=== PATIENT | male | born 1945 | race Caucasian/White ===

== ENCOUNTER 2017-10-23 10:43 | Observation (INO) ==
--- NOTE | 2017-10-23 11:08 | Emergency Department Note ---
Disposition Clinical Impression: Cholecystitis, UTI (urinary tract infection), Hyponatremia Disposition: Admitted As Inpatient Condition: Fair Time of Disposition: 13:59 Abdominal Pain HPI - General Chief Complaint: ED Abdominal Pain Stated Complaint: abd pain Time Seen by Provider: 10/23/17 10:48 Source: patient Limitations: no limitations Nursing Notes Reviewed: Yes Vital Signs Reviewed: Yes - History of Present Illness HPI Narrative: 72 year old white male presents for abdominal pain. Patient presented to ED two days ago for cramping epigastric pain, discharged with diagnosis of "biliary colic". Told to get HIDA scan and followup with general surgeon Dr. Johnson. Comes back to ED today for RUQ pain, constant sharp 7/10. Worse with laying down, better with bending or sitting. Also reports RLQ pain when it's pressed on. Epigastric cramping is improved. States constipation for 3 days, usually has daily bowel movements. Reports he "can't urinate". When he feels like he has " to go," urine "trickles out" before he can make it to the bathroom. After, bladder feels empty. Denies nausea, vomiting, fever, chills, chest pain, shortness of breath, swelling, pain in shoulder. Pain Scale: 7 - Related Data Home Medications Medication Instructions Recorded Confirmed Aspirin [Lo-Dose Aspirin EC] 81 mg PO DAILY 10/23/17 10/23/17 Atorvastatin [Lipitor] 20 mg PO DAILY 10/23/17 10/23/17 Cholecalciferol (D-3) [Vitamin D] 1,000 unit PO DAILY 10/23/17 10/23/17 Lisinopril/Hydrochlorothiazide 0.5 tab PO HS 10/23/17 10/23/17 [Zestoretic 20-12.5 mg Tablet] Lisinopril/Hydrochlorothiazide 1 tab PO QAM 10/23/17 10/23/17 [Zestoretic 20-12.5 mg Tablet] Ranitidine HCl [Zantac] 300 mg PO DAILY PRN 10/23/17 10/23/17 Allergies Allergy/AdvReac Type Severity Reaction Status Date / Time Penicillins [PCN] Allergy Hives Verified 10/23/17 13:56 All systems ED: reviewed and negative except as stated. Abdominal Pain PMH - Past Medical History Medical history: Reports: GERD, hypertension Male Surgical History: Reports: no surgical history Psychiatric history: Reports: no psych history - Social History Smoking status: Never smoker Alcohol use: Reports: occasionally Drug use: Reports: none Physical Exam - General Limitations: no limitations General appearance: alert, in no apparent distress - Head Head exam: atraumatic, normocephalic, normal inspection - Eye Eye exam: Present: normal appearance, PERRL, EOMI - Neck Neck exam: Present: normal inspection, full ROM, trachea midline - Chest Chest inspection: Present: normal inspection, symmetric chest wall rise - Respiratory Respiratory exam: Present: normal lung sounds bilaterally - Cardiovascular Cardiovascular exam: Present: regular rate, normal rhythm, normal heart sounds - Abdominal Exam Abdominal exam: Present: tenderness, normal bowel sounds. Absent: soft (firm on right side. ), Non-Tender, distention, guarding, rebound, rigidity, bruit Abdominal tenderness: Present: RUQ, RLQ - Extremities Exam Extremities exam: Present: normal inspection, full ROM. Absent: tenderness, pedal edema - Neurological Exam Neurological exam: Present: alert, oriented X3, CN II-XII intact - Psychiatric Psychiatric exam: Present: normal affect, normal mood - Skin Skin exam: Present: warm, dry, intact, normal color Course Course Narrative: 72 year old male presents for RUQ abdominal pain. Was seen in ED 2 days ago for biliary colic. Reports associated symptoms of constipation and urinary retention. Denies nausea, vomiting, fever, chills. Patient is alert and oriented , hemodynamically stable, and of non-toxic appearance. On exam, tender to palpation RUQ and RLQ, without distention or rebound. CT abd/pelvis and US gallbaldder from 2 days ago reveals thickening of gallbladder wall that could represent early acute cholecystitis. CT also reveals BPH, prostate 5.3cm. Will order US gallbladder and bilirubin. Will do point of care bladder US. - Reevaluation(s) Reevaluation #1: Point of care bladder ultrasound shows no urinary retention. WBC is elevated to 16.8 from 12.4 from prior visit 2 days ago. Lactic acid negative. UA reveals positive nitrite, moderate leukocyte esterase, and many bacteria. Also high protein, large blood, and high urobilinogen. On prostate exam, prostate is firm , not boggy and without nodules, not tender to palpation. Patient has penicillin allergy - hives. Start patient on flagyl and cipro. Sodium and chloride are decreased from 2 days ago. Bilirubin is further elevated. US gallbladder shows gallbladder wall thickening and gallbladder stones/sludge, concerning for cholecystitis. Spoke with general surgeon who does not recommend another CT abd/pelvis. Recommends admission to Medicine and agrees to serve as consult. Spoke with crayon painter Dr. Gilmore about hyponatremia and hypochloremia. States probably due to hypovolemia, recommends urine osmolarity, urine sodium, and IVF NS, and recheck blood Na 6 hours after initial draw. Dr. Gilmore agrees to serve as consult. Spoke with hospitalist Dr. Wynne who agrees to admit. Discussed results with patient and family who voices understanding and agrees to admission. Time: 13:58 Vital Signs Temperature 98.8 F 10/23/17 10:46 Pulse Rate 88 10/23/17 10:46 Respiratory Rate 18 10/23/17 10:46 Blood Pressure 165/81 10/23/17 10:46 O2 Sat by Pulse Oximetry 98 10/23/17 10:46 Temperature 98.8 F 10/23/17 10:52 Pulse Rate 86 10/23/17 14:06 Respiratory Rate 16 10/23/17 14:06 Blood Pressure 136/74 10/23/17 14:06 O2 Sat by Pulse Oximetry 96 10/23/17 14:06 Oxygen Delivery Oxygen Delivery Room Air Abdominal Pain - MDM Narrative Medical decision making narrative: Gallbladder Ultrasound 10/23/17 11:02 IMPRESSION: Gallbladder distension with wall thickening, concerning for cholecystitis. Gallbladder stones/sludge visible. D/ / Darryn Morelos MD / Darryn Morelos MD Interpreting Provider: Darryn Morelos MD - Medical Records Medical records reviewed: Yes I reviewed the patient's medical records. - Lab Data Lab results reviewed: Yes I reviewed the patient's lab results. Result diagrams: 10/23/17 11:17 10/23/17 11:16 Lab Results 10/23/17 10/23/17 10/23/17 Range/Units 11:16 11:17 11:17 WBC 16.8 H (4.3-11.1) K/mcL RBC 4.97 (4.19-5.50) M/mcL Hgb 15.1 (12.9-16.9) g/dL Hct 43.0 (37.5-50.1) % MCV 86.5 (83.0-100.0) fL MCH 30.4 (28.0-33.3) pg MCHC 35.1 (31.6-35.5) g/dL RDW 13.4 (11.5-14.5) % Plt Count 242 (140-400) K/mcL MPV 9.1 L (9.4-12.4) fL Immature Gran % 0.6 (0-4) % Seg Neutrophils % 80.1 % Lymphocytes % 8.7 % Monocytes % 10.2 % Eosinophils % 0.2 % Basophils % 0.2 % Neutrophils # 13.5 H (1.6-8.9) K/mcL Lymphocytes # 1.5 (0.6-4.6) K/mcL Monocytes # 1.7 H (0.0-1.3) K/mcL Eosinophils # 0.0 (0.0-0.6) K/mcL Basophils # 0.0 (0.0-0.2) K/mcL PT 13.8 H (9.4-12.1) Seconds INR 1.2 Sodium 121 L (136-145) mEq/L Potassium 4.3 (3.5-5.1) mEq/L Chloride 88 L (98-107) mEq/L Carbon Dioxide 24 (23-29) mEq/L BUN 12 (8-23) mg/dL Creatinine 0.86 (0.70-1.30) mg/dL Est GFR ( Amer) > 60 (> 60) Est GFR (Non-Af Amer) > 60 (> 60) BUN/Creatinine Ratio 14 (6-26) Glucose 127 H (70-105) mg/dL Calculated Osmolality 253 L (280-300) Lactic Acid (0.5-2.2) mmol/L Calcium 9.0 (8.6-10.3) mg/dL Total Bilirubin 3.3 H (0.3-1.0) mg/dL Direct Bilirubin 0.7 H (0.0-0.2) mg/dL Indirect Bilirubin 2.6 H (0.0-1.2) mg/dL AST 17 (13-39) Units/L ALT 17 (7-52) Units/L Alkaline Phosphatase 54 (34-104) Units/L Serum Total Protein 6.7 (6.4-8.9) g/dL Albumin 3.8 (3.5-5.7) g/dL Globulin 2.9 (2.4-3.5) g/dL Albumin/Globulin Ratio 1.3 (1.1-2.2) Lipase < 3 L (11-82) Units/L Urine Color (Yellow) Urine Clarity (Clear) Urine pH (5.0-8.0) pH Units Ur Specific [place] (1.010-1.025) Urine Protein (Neg-Trace) mg/dL Urine Glucose (UA) (Normal) mg/dL Urine Ketones (Negative) mg/dL Urine Blood (Negative) Urine Nitrite (Negative) Urine Bilirubin (Negative) Urine Urobilinogen (Normal) mg/dL Ur Leukocyte Esterase (Negative) Urine Microscopic RBC (0-3) per hpf Urine Microscopic WBC (0-3) per hpf Ur Squamous Epith Cells (None-Few) per lpf Urine Bacteria (None-Few) per hpf Hyaline Casts (None-Few) per lpf Ur Culture Indicated? (NO) Acetaminophen < 10 L (10-20) mcg/mL 10/23/17 10/23/17 Range/Units 11:30 11:51 WBC (4.3-11.1) K/mcL RBC (4.19-5.50) M/mcL Hgb (12.9-16.9) g/dL Hct (37.5-50.1) % MCV (83.0-100.0) fL MCH (28.0-33.3) pg MCHC (31.6-35.5) g/dL RDW (11.5-14.5) % Plt Count (140-400) K/mcL MPV (9.4-12.4) fL Immature Gran % (0-4) % Seg Neutrophils % % Lymphocytes % % Monocytes % % Eosinophils % % Basophils % % Neutrophils # (1.6-8.9) K/mcL Lymphocytes # (0.6-4.6) K/mcL Monocytes # (0.0-1.3) K/mcL Eosinophils # (0.0-0.6) K/mcL Basophils # (0.0-0.2) K/mcL PT (9.4-12.1) Seconds INR Sodium (136-145) mEq/L Potassium (3.5-5.1) mEq/L Chloride (98-107) mEq/L Carbon Dioxide (23-29) mEq/L BUN (8-23) mg/dL Creatinine (0.70-1.30) mg/dL Est GFR ( Amer) (> 60) Est GFR (Non-Af Amer) (> 60) BUN/Creatinine Ratio (6-26) Glucose (70-105) mg/dL Calculated Osmolality (280-300) Lactic Acid 1.6 (0.5-2.2) mmol/L Calcium (8.6-10.3) mg/dL Total Bilirubin (0.3-1.0) mg/dL Direct Bilirubin (0.0-0.2) mg/dL Indirect Bilirubin (0.0-1.2) mg/dL AST (13-39) Units/L ALT (7-52) Units/L Alkaline Phosphatase (34-104) Units/L Serum Total Protein (6.4-8.9) g/dL Albumin (3.5-5.7) g/dL Globulin (2.4-3.5) g/dL Albumin/Globulin Ratio (1.1-2.2) Lipase (11-82) Units/L Urine Color [place] A (Yellow) Urine Clarity Cloudy A (Clear) Urine pH 6.0 (5.0-8.0) pH Units Ur Specific [place] 1.025 (1.010-1.025) Urine Protein 100 H (Neg-Trace) mg/dL Urine Glucose (UA) Normal (Normal) mg/dL Urine Ketones Trace H (Negative) mg/dL Urine Blood Large H (Negative) Urine Nitrite Positive A (Negative) Urine Bilirubin Small H (Negative) Urine Urobilinogen 4.0 H (Normal) mg/dL Ur Leukocyte Esterase Moderate H (Negative) Urine Microscopic RBC 5-15 H (0-3) per hpf Urine Microscopic WBC TNTC H (0-3) per hpf Ur Squamous Epith Cells Few (None-Few) per lpf Urine Bacteria Many H (None-Few) per hpf Hyaline Casts None Seen (None-Few) per lpf Ur Culture Indicated? YES A (NO) Acetaminophen (10-20) mcg/mL - Radiology Data Radiology results reviewed: Yes I reviewed the patient's radiology results. CT abd/pelvis 10/21/2017. 1. Hydropic appearance of the gallbladder with 6 mm calcification in the region of the gallbladder neck/cystic duct. Findings can be seen in setting of calculus cholecystitis. Ultrasound is recommended for further evaluation, to confirm. 2. Enlargement of the prostate. Correlation with physical exam findings and PSA for BPH is recommended. US gallbladder 10/21/2017. 1. Distended gallbladder with gallbladder wall thickening. In light of the findings of the previous CT, findings could represent early acute cholecystitis. Consider further evaluation with nuclear medicine HIDA scan. Attestation Statement - Attestation Attestation: I, Randall De La Rosa DO, examined this patient [id number] and my medical decision-making was reviewed with Dr. Meme Leiva, Resident Physician. I agree with the documented findings, disposition and treatment plan as described except to the extent set forth below. Please see my progress notes for details.
[2017-10-23 11:28] LABS: Basophils % 0.2 %; Eosinophils % 0.2 %; Hemoglobin 15.1 g/dL (12.9-16.9); Immature Granulocytes % 0.6 % (0-4); Lymphocytes # 1.5 K/mcL (0.6-4.6); Lymphocytes % 8.7 %; Mean Corpuscular HGB Conc 35.1 g/dL (31.6-35.5); Mean Corpuscular Hemoglobin 30.4 pg (28.0-33.3); Mean Corpuscular Volume 86.5 fL (83.0-100.0); Mean Platelet Volume 9.1 fL (9.4-12.4); Monocytes # 1.7 K/mcL (0.0-1.3); Monocytes % 10.2 %; Neutrophils # 13.5 K/mcL (1.6-8.9); Platelet Count 242 K/mcL (140-400); Red Blood Count 4.97 M/mcL (4.19-5.50); Red Cell Distribution Width 13.4 % (11.5-14.5); Segmented Neutrophils % 80.1 %
[2017-10-23 11:37] LABS: INR 1.2; Prothrombin Time 13.8 Seconds (9.4-12.1)
--- NOTE | 2017-10-23 11:59 | Emergency Department Note ---
Disposition Clinical Impression: Cholecystitis, UTI (urinary tract infection), Hyponatremia Disposition: Admitted As Inpatient Condition: Fair Time of Disposition: 14:10 General Adult HPI - General Chief complaint: ED Abdominal Pain Stated complaint: abd pain Time Seen by Provider: 10/23/17 10:48 Source: patient Limitations: no limitations - History of Present Illness Pain Scale: 7 - Related Data Home Medications Medication Instructions Recorded Confirmed Aspirin [Lo-Dose Aspirin EC] 81 mg PO DAILY 10/23/17 10/23/17 Atorvastatin [Lipitor] 20 mg PO DAILY 10/23/17 10/23/17 Cholecalciferol (D-3) [Vitamin D] 1,000 unit PO DAILY 10/23/17 10/23/17 Lisinopril/Hydrochlorothiazide 0.5 tab PO HS 10/23/17 10/23/17 [Zestoretic 20-12.5 mg Tablet] Lisinopril/Hydrochlorothiazide 1 tab PO QAM 10/23/17 10/23/17 [Zestoretic 20-12.5 mg Tablet] Ranitidine HCl [Zantac] 300 mg PO DAILY PRN 10/23/17 10/23/17 Allergies Allergy/AdvReac Type Severity Reaction Status Date / Time Penicillins [PCN] Allergy Hives Verified 10/23/17 13:56 Past Medical History - Past Medical History Medical history: Reports: GERD, hypertension Surgical history: Reports: no surgical history Psychiatric history: Reports: no psych history - Social History Smoking Status: Never smoker Smokeless Tobacco Status: No Alcohol use: Reports: occasionally Drug use: Reports: none Physical Exam - General Limitations: no limitations General appearance: alert, in no apparent distress Course Vital Signs Temperature 98.8 F 10/23/17 10:46 Pulse Rate 88 10/23/17 10:46 Respiratory Rate 18 10/23/17 10:46 Blood Pressure 165/81 10/23/17 10:46 O2 Sat by Pulse Oximetry 98 10/23/17 10:46 Temperature 98.8 F 10/23/17 10:52 Pulse Rate 86 10/23/17 14:06 Respiratory Rate 16 10/23/17 14:06 Blood Pressure 136/74 10/23/17 14:06 O2 Sat by Pulse Oximetry 96 10/23/17 14:06 Oxygen Delivery Oxygen Delivery Room Air Medical Decision Making - Lab Data Result diagrams: 10/23/17 11:17 10/23/17 11:16 Lab Results 10/23/17 10/23/17 10/23/17 Range/Units 11:16 11:17 11:17 WBC 16.8 H (4.3-11.1) K/mcL RBC 4.97 (4.19-5.50) M/mcL Hgb 15.1 (12.9-16.9) g/dL Hct 43.0 (37.5-50.1) % MCV 86.5 (83.0-100.0) fL MCH 30.4 (28.0-33.3) pg MCHC 35.1 (31.6-35.5) g/dL RDW 13.4 (11.5-14.5) % Plt Count 242 (140-400) K/mcL MPV 9.1 L (9.4-12.4) fL Immature Gran % 0.6 (0-4) % Seg Neutrophils % 80.1 % Lymphocytes % 8.7 % Monocytes % 10.2 % Eosinophils % 0.2 % Basophils % 0.2 % Neutrophils # 13.5 H (1.6-8.9) K/mcL Lymphocytes # 1.5 (0.6-4.6) K/mcL Monocytes # 1.7 H (0.0-1.3) K/mcL Eosinophils # 0.0 (0.0-0.6) K/mcL Basophils # 0.0 (0.0-0.2) K/mcL PT 13.8 H (9.4-12.1) Seconds INR 1.2 Sodium 121 L (136-145) mEq/L Potassium 4.3 (3.5-5.1) mEq/L Chloride 88 L (98-107) mEq/L Carbon Dioxide 24 (23-29) mEq/L BUN 12 (8-23) mg/dL Creatinine 0.86 (0.70-1.30) mg/dL Est GFR ( Amer) > 60 (> 60) Est GFR (Non-Af Amer) > 60 (> 60) BUN/Creatinine Ratio 14 (6-26) Glucose 127 H (70-105) mg/dL Calculated Osmolality 253 L (280-300) Lactic Acid (0.5-2.2) mmol/L Calcium 9.0 (8.6-10.3) mg/dL Total Bilirubin 3.3 H (0.3-1.0) mg/dL Direct Bilirubin 0.7 H (0.0-0.2) mg/dL Indirect Bilirubin 2.6 H (0.0-1.2) mg/dL AST 17 (13-39) Units/L ALT 17 (7-52) Units/L Alkaline Phosphatase 54 (34-104) Units/L Serum Total Protein 6.7 (6.4-8.9) g/dL Albumin 3.8 (3.5-5.7) g/dL Globulin 2.9 (2.4-3.5) g/dL Albumin/Globulin Ratio 1.3 (1.1-2.2) Lipase < 3 L (11-82) Units/L Urine Color (Yellow) Urine Clarity (Clear) Urine pH (5.0-8.0) pH Units Ur Specific [place] (1.010-1.025) Urine Protein (Neg-Trace) mg/dL Urine Glucose (UA) (Normal) mg/dL Urine Ketones (Negative) mg/dL Urine Blood (Negative) Urine Nitrite (Negative) Urine Bilirubin (Negative) Urine Urobilinogen (Normal) mg/dL Ur Leukocyte Esterase (Negative) Urine Microscopic RBC (0-3) per hpf Urine Microscopic WBC (0-3) per hpf Ur Squamous Epith Cells (None-Few) per lpf Urine Bacteria (None-Few) per hpf Hyaline Casts (None-Few) per lpf Ur Culture Indicated? (NO) Acetaminophen < 10 L (10-20) mcg/mL 10/23/17 10/23/17 Range/Units 11:30 11:51 WBC (4.3-11.1) K/mcL RBC (4.19-5.50) M/mcL Hgb (12.9-16.9) g/dL Hct (37.5-50.1) % MCV (83.0-100.0) fL MCH (28.0-33.3) pg MCHC (31.6-35.5) g/dL RDW (11.5-14.5) % Plt Count (140-400) K/mcL MPV (9.4-12.4) fL Immature Gran % (0-4) % Seg Neutrophils % % Lymphocytes % % Monocytes % % Eosinophils % % Basophils % % Neutrophils # (1.6-8.9) K/mcL Lymphocytes # (0.6-4.6) K/mcL Monocytes # (0.0-1.3) K/mcL Eosinophils # (0.0-0.6) K/mcL Basophils # (0.0-0.2) K/mcL PT (9.4-12.1) Seconds INR Sodium (136-145) mEq/L Potassium (3.5-5.1) mEq/L Chloride (98-107) mEq/L Carbon Dioxide (23-29) mEq/L BUN (8-23) mg/dL Creatinine (0.70-1.30) mg/dL Est GFR ( Amer) (> 60) Est GFR (Non-Af Amer) (> 60) BUN/Creatinine Ratio (6-26) Glucose (70-105) mg/dL Calculated Osmolality (280-300) Lactic Acid 1.6 (0.5-2.2) mmol/L Calcium (8.6-10.3) mg/dL Total Bilirubin (0.3-1.0) mg/dL Direct Bilirubin (0.0-0.2) mg/dL Indirect Bilirubin (0.0-1.2) mg/dL AST (13-39) Units/L ALT (7-52) Units/L Alkaline Phosphatase (34-104) Units/L Serum Total Protein (6.4-8.9) g/dL Albumin (3.5-5.7) g/dL Globulin (2.4-3.5) g/dL Albumin/Globulin Ratio (1.1-2.2) Lipase (11-82) Units/L Urine Color [place] A (Yellow) Urine Clarity Cloudy A (Clear) Urine pH 6.0 (5.0-8.0) pH Units Ur Specific [place] 1.025 (1.010-1.025) Urine Protein 100 H (Neg-Trace) mg/dL Urine Glucose (UA) Normal (Normal) mg/dL Urine Ketones Trace H (Negative) mg/dL Urine Blood Large H (Negative) Urine Nitrite Positive A (Negative) Urine Bilirubin Small H (Negative) Urine Urobilinogen 4.0 H (Normal) mg/dL Ur Leukocyte Esterase Moderate H (Negative) Urine Microscopic RBC 5-15 H (0-3) per hpf Urine Microscopic WBC TNTC H (0-3) per hpf Ur Squamous Epith Cells Few (None-Few) per lpf Urine Bacteria Many H (None-Few) per hpf Hyaline Casts None Seen (None-Few) per lpf Ur Culture Indicated? YES A (NO) Acetaminophen (10-20) mcg/mL Attestation Statement - Attestation Attestation: I, Randall De La Rosa DO, examined this patient [id number] and my medical decision-making was reviewed with Dr. Meme Leiva, Resident Physician. I agree with the documented findings, disposition and treatment plan as described except to the extent set forth below. Please see my progress notes for details. 72-year-old male presents emergency room for evaluation of abdominal pain and decreased urinary output. Patient denies any fevers or chills no trauma or injuries at this time. Currently denying chest pain shortness breath headache vision changes nausea vomiting or diarrhea. Patient's main complaint is he had not had a bowel movement and has had decreased urinary output according to him. He was seen 2 days ago by myself and had a detailed evaluation completed a CT the abdomen ultrasound of the right upper quadrant that was concerning for possible cholecystitis or gallbladder wall thickening is labs reviewed as well as imaging with the on-call surgeon. Discussed and reviewed the presentation that time. There is no other acute infectious etiology noted during the workup. Patient did have a significantly large prostate but had no pain in his lower abdomen. Patient is presenting here today with pain in the right upper quadrant of the abdomen that radiates down in the right lower quadrant of the abdomen. Patient is more tender suprapubically into the right lower quadrant of the abdomen in comparison to the epigastrium and right upper quadrant. Patient will have repeat ultrasound of the gallbladder along with screening labs and urinalysis. Pain medication fluids will be given as needed. Bedside ultrasonography of the bladder will be completed as well looking for fluid retention. Patient otherwise clinically stable with stable vital signs and is afebrile. He is denying any other complaints this time. Repeat evaluation and clinical symptoms medical control be completed. See detailed recommendation physical exam, medical intervention, medical decision-making and disposition the resident physician's note. No critical care provider the patient's treatment course at this time. 1200 Patient has what appears to be urinary tract infection. This is a new finding compared to the previous evaluation. Patient does have lower abdominal pain. Prostate examination will be completed. Gallbladder ultrasound repeat similar findings from last time but no confirmatory findings of acute cholecystitis. Surgical consultation will be placed after the prostate exam is completed 1300 Patient was discussed and reviewed with the hospitalist Dr. encarnacion. No other operations or concerns at this time. Nephrology was consult and recommended fluids. Patient otherwise clinically stable we will continue to monitor here until admission process is completed.
[2017-10-23 12:06] LABS: Bilirubin,Urine Small (Negative); Blood,Urine Large (Negative); Clarity,Urine Cloudy (Clear); Color,Urine Orange (Yellow); Glucose,Urine (UA) Normal (Normal); Ketones,Urine Trace mg/dL (Negative); Leukocyte Esterase,Urine Moderate (Negative); Nitrite,Urine Positive (Negative); Protein,Urine 100 mg/dL (Neg-Trace); Specific Gravity,Urine 1.025 (1.010-1.025)
[2017-10-23 12:09] LABS: Bacteria,Urine Many per hpf (None-Few); Hyaline Casts,Urine None Seen per lpf (None-Few); Squamous Epithelial Cell,Urine Few per lpf (None-Few); WBC,Urine TNTC per hpf (0-3)
[2017-10-23 12:46] LABS: Alanine Aminotransferase 17 Units/L (7-52); Albumin 3.8 g/dL (3.5-5.7); Albumin/Globulin Ratio 1.3 (1.1-2.2); Alkaline Phosphatase 54 Units/L (34-104); Aspartate Amino Transferase 17 Units/L (13-39); BUN/Creatinine Ratio 14 (6-26); Bilirubin,Total 3.3 mg/dL (0.3-1.0); Blood Urea Nitrogen 12 mg/dL (8-23); Carbon Dioxide 24 mEq/L (23-29); Chloride 88 mEq/L (98-107); Globulin 2.9 g/dL (2.4-3.5); Glucose 127 mg/dL (70-105); Lipase < 3 Units/L (11-82); Osmolality,Calculated 253 (280-300); Potassium 4.3 mEq/L (3.5-5.1); Sodium 121 mEq/L (136-145); Total Protein 6.7 g/dL (6.4-8.9); eGFR For Non-African Americans > 60 (> 60)
[2017-10-23 13:02] LABS: Bilirubin,Direct 0.7 mg/dL (0.0-0.2); Bilirubin,Indirect 2.6 mg/dL (0.0-1.2)
[2017-10-23] MEDS ORDERED: MetroNIDAZOLE 500 MG/100 ML 500 MG/100 ML BAG IVPB ONE (13:10)
[2017-10-23] MEDS ORDERED: Ondansetron 4 MG/2 ML VIAL IVP ONE (13:26)
[2017-10-23] MEDS ORDERED: Ketorolac 15 MG/ML VIAL IVP ONE (13:26)
[2017-10-23 13:36] LABS: Acetaminophen < 10 mcg/mL (10-20)
[2017-10-23] MEDS ORDERED: 0.9 % Sodium Chloride 1,000 ML IVC ONE (14:18)
[2017-10-23] MEDS ORDERED: Acetaminophen 325 MG TABLET PO PRN (14:39)
[2017-10-23] MEDS ORDERED: Naloxone 0.4 MG/ML INJ IVP PRN (14:39)
[2017-10-23] MEDS ORDERED: 0.9 % Sodium Chloride 1,000 ML IVC SCH ×2 (14:45→22:01)
[2017-10-23] MEDS ORDERED: *HR* Promethazine 25 MG/ML VIAL IVP PRN (14:49)
--- NOTE | 2017-10-23 15:01 | Internal Med History&Physical ---
<BassamsilasbobbyJorge - Last Filed: 10/23/17 16:03> Date of Encounter: 10/23/17 Time of Encounter: 14:00 Internal Medicine - H&P: HPI Chief complaint: Abdominal pain Admitted From: Emergency Dept Plans for Post Hospital Care: Home History of present illness: Mr. Trimble is a 72 year old male w/PMH of GERD, HTN, and HLD presents from the ED w/CC of abdominal pain. Pt. reports being seen at [facility] ED on 10/21 w/same sx. Discharged. Pt. reports he began feeling worse w/worsening abdominal pain and reduced urinary output. Pt. reports urinary urgency w/scant output and burning. Pt. also reports no BM since 10/20. Pt. states he [place] to all this happening on the . Associated sx: fever, chills , pain w/laying flat. No alleviating or aggravating factors. Pt. denies recent illness, nausea, vomiting, headache, changes in vision, unusual bleeding, chest pain, SOB, cough, chest congestion, diarrhea, dizziness, lightheadedness, numbness, tingling, pre-syncope, syncope. Past Med Surg Social Fam HX - Past Medical History Source: patient, old records reviewed, obtained from family Medical history: GERD, hyperlipidemia, hypertension Psychiatric history: no psych history - Past Surgical History Surgical History: no surgical history - Social History Smoking Status: Never smoker Smokeless Tobacco Status: No Alcohol use: occasionally Drug use: none Current living situation: Home, With Family Activity Level: Independent ambulation, Very active Recent Out of Country Travel Within the Last 8 Weeks: No Exposure or Possible Exposure to Illness During Travel: No - Family History Father Race: Family Member Ethnicity: Non- Living Status: Age at : 75 Cause of : Infective TB Hx Family Respiratory Disorders: Yes (TB, COPD) Mother Race: Family Member Ethnicity: Non- Living Status: Age at : 79 Cause of : Alzheimer's disease Hx Family Cardiac Disorders: Yes (CVA) Hx Family Endocrine Disorder: Yes (DM) Hx Family Neurologic Disorders: Yes (Alzheimer's disease) Brother Race: Family Member Ethnicity: Non- Living Status: Age at : 51 Cause of : Aneurysm Hx Family Cardiac Disorders: Yes (Aneurysm) Sister Race: Family Member Ethnicity: Non- Living Status: Age at : 82 Cause of : Accident Hx Family Neurologic Disorders: Yes (Alzheimer's disease) Internal Medicine - H&P: Meds Aspirin [Lo-Dose Aspirin EC] 81 mg PO DAILY 10/23/17 [History] Atorvastatin [Lipitor] 20 mg PO DAILY 10/23/17 [History] Cholecalciferol (D-3) [Vitamin D] 1,000 unit PO DAILY 10/23/17 [History] Lisinopril/Hydrochlorothiazide [Zestoretic 20-12.5 mg Tablet] 0.5 tab PO HS [History] Lisinopril/Hydrochlorothiazide [Zestoretic 20-12.5 mg Tablet] 1 tab PO QAM 10/23 [History] Ranitidine HCl [Zantac] 300 mg PO DAILY PRN 10/23/17 [History] 3 Allergy/AdvReac Type Severity Reaction Status Date / Time Penicillins [PCN] Allergy Hives Verified 10/23/17 13:56 All Systems PM: A 10-system review of systems was performed and is negative for pertinent findings except as documented above in the HPI. - Constitutional Constitutional: no chills, no fever(s), no night sweats - EENT Eyes: no change in vision, no discharge, no pain, no photophobia Ears: no ear discharge, no ear pain, no tinnitus Nose, mouth and throat: no dysphagia, no nasal discharge, no neck pain, no sore throat - Breasts Breasts: as per HPI - Cardiovascular Cardiovascular ROS IM: no chest pain, no diaphoresis, no dyspnea, no lightheadedness, no palpitations, no syncope - Respiratory Respiratory: no cough, no dyspnea, no wheezing, no excessive phlegm production - Gastrointestinal Gastrointestinal: as per HPI, abdominal pain, constipation, no diarrhea, no hematemesis, no hematochezia, no melena, no nausea, no vomiting - Genitourinary Genitourinary ROS male: as per HPI, difficulty urinating, urinary urgency - Musculoskeletal Musculoskeletal ROS IM: as per HPI, no numbness, no tingling - Integumentary Integumentary IM: no rash, no unusual bruising - Neurological Neurological ROS: no confusion, no convulsions, no focal weakness, no numbness, no tingling, no tremor(s) - Psychiatric Psychiatric: as per HPI - Endocrine Endocrine IM: as per HPI - Hematologic/Lymphatic Hematologic/Lymphatic: no easy bruising - Allergic/Immunologic Allergic/Immunologic: as per HPI - Constitutional Vitals: Temp Pulse Resp BP Pulse Ox 98.8 F 86 16 136/74 96 10/23/17 10:52 10/23/17 14:06 10/23/17 14:06 10/23/17 14:06 10/23/17 14:06 General appearance: Present: cooperative, mild distress (Abdominal pain), A&O X 3, pleasant, underweight, answers questions appropriately - Head Head exam: Present: atraumatic, normocephalic - Eye Eye exam: Present: PERRL, conjuntiva pink, sclera anicteric Pupils: Present: PERRL - ENT ENT exam: Present: normal exam - Neck Neck exam general surgery: Present: supple, trachea midline. Absent: lymphadenopathy - Respiratory Respiratory exam: Present: CTAB. Absent: accessory muscle use, rales, rhonchi, wheezes - Cardiovascular Cardiovascular exam: Present: RRR, +S1, +S2. Absent: diastolic murmur, gallop, rubs, systolic murmur - GI/Abdominal GI/Abdominal exam: Present: normal bowel sounds, soft, no peritoneal signs. Absent: distended, tenderness - Rectal Rectal exam: Present: deferred - Additional comments: exam deferred. - Extremities Exam Extremities exam: Present: warm, radial pulses palpable and symmetrical. Absent : calf tenderness, cyanotic, pedal edema - Back Exam Back exam: Present: normal inspection - Neurological Exam Neurological exam: Present: alert, CN II-XII intact, oriented X3, no focal deficits. Absent: pronater drift, facial droop, speech deficit - Psychiatric Psychiatric exam: Present: normal affect, normal mood - Skin Skin exam: Present: dry, intact Internal Med - H&P Results - Labs CBC & Chem 7: 10/23/17 11:17 10/23/17 11:16 - Diagnostic Studies Other Images Additional comments: Impressions Gallbladder Ultrasound 10/23/17 11:02 IMPRESSION: Gallbladder distension with wall thickening, concerning for cholecystitis. Gallbladder stones/sludge visible. D/ / Darryn Morelos MD / Darryn Morelos MD Interpreting Provider: Darryn Morelos MD CT scan - abdomen Additional comments: EXAMINATION: CT OF THE ABDOMEN AND PELVIS WITHOUT CONTRAST 10/21/2017 8:10 am TECHNIQUE: CT of the abdomen and pelvis was performed without the administration of intravenous contrast. Multiplanar reformatted images are provided for review. Dose modulation, iterative reconstruction, and/or weight based adjustment of the mA/kV was utilized to reduce the radiation dose to as low as reasonably achievable. COMPARISON: None. HISTORY: ORDERING SYSTEM PROVIDED HISTORY: abdominal pain, per. FINDINGS: Lung bases: Suspected atelectatic changes are identified in the left lung base. Visualized lung bases are otherwise well aerated without focal airspace consolidation, lung nodule or lung mass. No pleural or pericardial effusion. Heart size appears within normal limits. There are calcified bilateral hilar lymph nodes. Organs: The liver has normal size and contours. No suspicious intrahepatic mass lesion identified. No extrahepatic biliary ductal dilatation. The gallbladder is hydropic in appearance. There is a 5 mm calculus in the region of the gallbladder neck/cystic duct.. The spleen, pancreas and left adrenal gland have a normal noncontrast CT appearance. 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 The kidneys are symmetric in size and noncontrast appearance. Fluid attenuating hypodensity in the midpole of the left kidney is compatible with a benign renal cyst. No suspicious renal lesions identified. No renal, ureteral or intravesicular calculi are identified. No obstructive uropathy. GI/bowel: No dilated loops of bowel, or findings to suggest obstruction. No mural thickening or adjacent inflammatory changes identified. The appendix is normal and nondilated. Peritoneum/retroperitoneum: No lymphadenopathy, free fluid or free air identified in the abdomen or pelvis. Aorta has normal course and caliber. Visualized vascular structures otherwise have an unremarkable noncontrast CT appearance. Pelvis: There is moderate enlargement of the prostate which measures approximately 5.3 x 3.6 cm transverse and 6.9 cm craniocaudal dimensions and has mass effect on the urinary bladder. The urinary bladder is unremarkable. Bones/soft tissues: Visualized osseous structures are mildly demineralized. There is advanced degenerative disc disease at L5-S1. No suspicious osseous lesions are identified. CT/CT abd pelvis wo no iv no oral IMPRESSION: 1. Hydropic appearance of the gallbladder with 6 mm calcification in the region of the gallbladder neck/cystic duct. Findings can be seen in setting of calculus cholecystitis. Ultrasound is recommended for further evaluation, to confirm. 2. Enlargement of the prostate. Correlation with physical exam findings and PSA for BPH is recommended. D/ / Kole Barros / Kole Barros Interpreting Provider: Kole Barros - Assessment and plan (1) Cholecystitis Current Visit: Yes Status: Acute Assessment and plan: Acute cholecystitis according to CT of the abdomen/pelvis and US of the gallbladder. WBC of 16.8 on admission. Pt. reports generalized abdominal pain that has moved to RUQ and RLQ. Imaging shows hydropic appearance of the gallbladder was 6 mm calcification in the region of the gallbladder neck/cystic duct. Findings can be seen in setting of calculus cholecystitis. Ultrasound is recommended for further evaluation to confirm. Surgery consult ordered in ED. IVPB ciprofloxacin 400 mg Q12HR and IVPB Flagyl 500 mg Q8HR. NPO. Strict I& O. Stair-step pain medication for pain mgmt. Pt. discussed w/Dr. Wynne who agrees w/plan of care. Pt. is high risk for further morbidity and complications d/t current worsening abdominal pain d/t cholecystitis, reduced urinary output most likely d/t UTI, hyponatremia of 121, need for IVPB abx coverage for multiple infective processes, WBC of 16.8/fever/chills, and risk factors. Observation. (2) UTI (urinary tract infection) Current Visit: Yes Status: Acute Assessment and plan: U/A indicative of UTI and for culture. Pt. reports urinary urgency and scant urinary output w/burning. Just returned from vacation and driving from [place]. Imaging shows enlargement of the prostate. IVPB ciprofloxacin and Flagyl started in the ED to cover UTI, cholecystitis, and possible prostatitis. Will continue IVPB ciprofloxacin 400 mg every 12 hours and IVPB metronidazole 500 mg every 8 hour for infection coverage. Will adjust abx coverage based on culture results. Bee catheter ordered. Bladder scans PRN. Urology consult ordered and discussed w/Dr. Gan and I appreciate the consult and recommendations. Nephrology consult ordered in ED. Strict I&O. Qualifiers: Urinary tract infection type: site unspecified Hematuria presence: with hematuria Qualified Code(s): N39.0 - Urinary tract infection, site not specified; R31.9 - Hematuria, unspecified (3) Hyponatremia Current Visit: Yes Status: Acute Assessment and plan: Acute hyponatermia w/sodium of 121 on admission of unknown etiology. U/A indicative for culture and UTI. Pt. reports urinary retention/dribbling. Pt. received 1L bolus of 0.9 NS in ED. Will continue @ 100 mLs/HR. Strict I&O. Urology consult ordered and discussed w/Dr. Gan and I appreciate the consult and recommendations. Nephrology consulted in ED. Sodium checks Q8HR. Continuous cardiac telemetry. Monitor pt., output, and f/u labs. (4) Abdominal pain Current Visit: Yes Status: Acute Assessment and plan: Acute abdominal pain for the past several days. Pt. reports being seen in ED on 10/21 and discharged. Sx worsened. Reports epigastric pain that has moved to RUQ and RLQ. Denies BM since 10/20. CT of the abdomen/pelvis on 10/21 shows hydropic appearance of the gallbladder was 6 mm calcification in the region of the gallbladder neck/cystic duct. Findings can be seen in setting of calculus cholecystitis. Ultrasound is recommended for further evaluation to confirm. Enlargement of the prostate. Correlation with physical exam findings and PSA for BPH commended. US of the gallbladder today shows gallbladder distention with wall thickening concerning for cholecystitis. Gallbladder stones/sludge visible. NPO. IVP Phenergan 12.5 mg Q6HR PRN for N/V. IVP protonix 40 mg BID. Surgery consult ordered in the ED. Qualifiers: Abdominal location: epigastric Qualified Code(s): R10.13 - Epigastric pain (5) GERD (gastroesophageal reflux disease) Current Visit: Yes Status: Chronic Assessment and plan: Hx of chronic GERD. IVP Protonix 40 mg BID. IVP Phenergan 12.5 mg Q6HR PRN for N /V. Qualifiers: Esophagitis presence: esophagitis presence not specified Qualified Code(s) : K21.9 - Gastro-esophageal reflux disease without esophagitis (6) HLD (hyperlipidemia) Current Visit: Yes Status: Chronic Assessment and plan: Hx of chronic HLD. Lipid panel in a.m. labs. Continue patient's Lipitor. Qualifiers: Hyperlipidemia type: pure hypercholesterolemia Qualified Code(s): E78.00 - Pure hypercholesterolemia, unspecified; E78.0 - Pure hypercholesterolemia (7) HTN (hypertension) Current Visit: Yes Status: Chronic Assessment and plan: Hx of chronic HTN. Monitor patient vital signs. Continue patient's lisinopril/ hydrochlorothiazide. Qualifiers: Hypertension type: essential hypertension Qualified Code(s): I10 - Essential (primary) hypertension (8) DVT prophylaxis Current Visit: Yes Status: Acute Assessment and plan: SQ Heparin 5,000 units Q8HR for DVT prophylaxis. Monitor pt. for signs of bleeding. (9) Enlarged prostate Current Visit: Yes Status: Acute Assessment and plan: Enlarged prostate on CT of the abdomen/prostate on 10/21. Unknown if enlarged prostate playing a role in pts. urinary urgency/scant output. Nephrology and Urology consults ordered. Strict I&O. Bee ordered. Bladder scans PRN. - Time Spent With Patient Total time spent is greater than 50% in coordination of care (as documented) at patient's floor/unit and/or counseling patient: Greater than 35 minutes <Kimberly Wynne - Last Filed: 10/23/17 19:26> Date of Encounter: 10/23/17 Internal Medicine - H&P: HPI History of present illness: Mr. Trimble is a 72 year old male All Systems PM: A 10-system review of systems was performed and is negative for pertinent findings except as documented above in the HPI. - Constitutional Vitals: Temp Pulse Resp BP Pulse Ox 100.2 F H 94 15 126/56 94 10/23/17 18:37 10/23/17 18:37 10/23/17 18:37 10/23/17 18:37 10/23/17 18:37 Internal Med - H&P Results - Labs CBC & Chem 7: 10/23/17 11:17 10/23/17 11:16 - Impressions ITS Impressions Abdomen/Pelvis CT 10/23/17 16:09 IMPRESSION: 1. Acute cholecystitis with obstructive stone at the gallbladder neck. This corresponds with findings on ultrasound performed earlier today. 2. Right basilar subsegmental atelectasis is presumably related to respiratory splinting. 3. Calcific atherosclerotic disease aorta. 4. Reactive pelvic ascites has increased in volume since prior study. D/ / Faid Valladares / Fadi Valladares Interpreting Provider: Fadi Valladares - Attending Attestation I have seen and examined independently. I have discussed with LEAD GAME DESIGNER Mr Cooper regarding the management plan. Agree with the documentation. - Assessment and plan (1) Abdominal pain Current Visit: Yes Status: Acute Qualifiers: Abdominal location: epigastric Qualified Code(s): R10.13 - Epigastric pain (2) Cholecystitis Current Visit: Yes Status: Acute (3) UTI (urinary tract infection) Current Visit: Yes Status: Acute Qualifiers: Urinary tract infection type: site unspecified Hematuria presence: with hematuria Qualified Code(s): N39.0 - Urinary tract infection, site not specified; R31.9 - Hematuria, unspecified (4) Hyponatremia Current Visit: Yes Status: Acute (5) GERD (gastroesophageal reflux disease) Current Visit: Yes Status: Chronic Qualifiers: Esophagitis presence: esophagitis presence not specified Qualified Code(s) : K21.9 - Gastro-esophageal reflux disease without esophagitis (6) HLD (hyperlipidemia) Current Visit: Yes Status: Chronic Qualifiers: Hyperlipidemia type: pure hypercholesterolemia Qualified Code(s): E78.00 - Pure hypercholesterolemia, unspecified; E78.0 - Pure hypercholesterolemia (7) HTN (hypertension) Current Visit: Yes Status: Chronic Qualifiers: Hypertension type: essential hypertension Qualified Code(s): I10 - Essential (primary) hypertension (8) DVT prophylaxis Current Visit: Yes Status: Acute (9) Enlarged prostate Current Visit: Yes Status: Acute - Time Spent With Patient Total time spent is greater than 50% in coordination of care (as documented) at patient's floor/unit and/or counseling patient:
[2017-10-23] MEDS ORDERED: MetroNIDAZOLE 500 MG/100 ML 500 MG/100 ML BAG IVPB SCH (16:00)
[2017-10-23] MEDS: Aspirin Enteric Coated 81 MG Tablet PO SCH (16:14)
[2017-10-23] MEDS: Pantoprazole 40 MG VIAL IVP SCH (16:15)
[2017-10-23] MEDS: Cholecalciferol (D-3) 1,000 UNIT TABLET PO SCH (16:15)
[2017-10-23] MEDS: Lisinopril-HCTZ 20-12.5mg TABLET PO SCH ×3 (16:23→19:54)
--- NOTE | 2017-10-23 17:05 | General Surgery Consult Note ---
<Kenia Yeung E - Last Filed: 10/23/17 16:49> Date of Encounter: 10/23/17 Time of Encounter: 16:49 Assessment and Plan (1) Cholecystitis Current Visit: Yes Status: Acute Nothing by mouth Repeat CT scan without contrast Based on CT we will decide if a laparoscopic cholecystectomy with cholangiogram is possible tomorrow morning Procedure and possible risks and benefits of surgery were discussed with the patient, common complications were discussed, patient consents to surgery, consent form is found in the folder. Repeat CBC BMP hepatic panel mag and phosphorus in morning Serial abdominal exams IV fluids as per primary Pain medication as needed We will reassess in morning History of Present Illness Reason for consult: other (Possible acute cholecystitis) Requesting physician: Meme Leiva History of present illness: Desiree Trimble is a 72-year-old male who initially came to the ED on 10/21/2017 with epigastric pain and nausea and vomiting. At that time they did a CT scan that showed a 6 mm calcification of the neck/cystic duct, which they called calculus cholecystitis and BPH. An ultrasound of the gallbladder on 10/21/2017 showed a distended gallbladder with wall thickening suspicious for early acute cholangitis. He was told he had biliary colic and was to follow-up with Dr. Johnson for a HIDA scan next Wednesday. He began having more pain and also some urinary difficulty today so he came back to the ED. He says he has had epigastric pain as well as lower left quadrant pain. I had any nausea vomiting fever or chills at this time. He describes his pain as 7 out of 10 and sharp worse with laying flat matter with bending or tingling. His right lower quadrant pain is just when he presses on it. Today's white blood cell count is at 16.8 hemoglobin 15.1 hematocrit 43 and platelets of 242. Sodium is at 121 potassium 4.3 chloride 88 CO2 24 nightly 12 creatinine 0.86. He shows some hyperbilirubinemia and 3.3 with direct bilirubin at 0.7 and indirect 2.6 AST and ALP at 17 individually, lipase is less than 3. Analysis shows orange cloudy urine with a pH of 6.0, specific gravity 1.025, protein 100, ketones trace, blood large, nitrate positive, bilirubin small, urobilinogen 4.0, leukocyte esterase moderate microscopic RBCs 5-15 microscopic white blood cells too numerous to count, [place] epithelial cells few, bacteria many urine culture was ordered. Past Med Surg Social Fam HX - Past Medical History Medical history: GERD, hyperlipidemia, hypertension Psychiatric history: no psych history - Past Surgical History Surgical History: no surgical history - Social History Smoking Status: Never smoker Smokeless Tobacco Status: No Alcohol use: occasionally Drug use: none - Family History Mother Hx Family Endocrine Disorder: Yes (DM) Father Race: Family Member Ethnicity: Non- Living Status: Age at : 75 Cause of : Infective TB Hx Family Respiratory Disorders: Yes (TB, COPD) Brother Race: Family Member Ethnicity: Non- Living Status: Age at : 51 Cause of : Aneurysm Hx Family Cardiac Disorders: Yes (Aneurysm) Sister Race: Family Member Ethnicity: Non- Living Status: Age at : 82 Cause of : Accident Hx Family Neurologic Disorders: Yes (Alzheimer's disease) Medications and Allergies Aspirin [Lo-Dose Aspirin EC] 81 mg PO DAILY 10/23/17 [History] Atorvastatin [Lipitor] 20 mg PO DAILY 10/23/17 [History] Cholecalciferol (D-3) [Vitamin D] 1,000 unit PO DAILY 10/23/17 [History] Lisinopril/Hydrochlorothiazide [Zestoretic 20-12.5 mg Tablet] 0.5 tab PO HS [History] Lisinopril/Hydrochlorothiazide [Zestoretic 20-12.5 mg Tablet] 1 tab PO QAM 10/23 [History] Ranitidine HCl [Zantac] 300 mg PO DAILY PRN 10/23/17 [History] 3 Allergy/AdvReac Type Severity Reaction Status Date / Time Penicillins [PCN] Allergy Hives Verified 10/23/17 13:56 Review of Systems All systems PM: The remainder of the systems were reviewed and are negative - Constitutional as per HPI - Cardiovascular no chest pain, no irregular heart rhythm, no radiating jaw, neck or arm pain - Respiratory no cough, no dyspnea, no chest congestion - Gastrointestinal as per HPI - Genitourinary change in urinary stream, difficulty urinating, urinary hesitancy General Surgery Exam Initial Vital Signs Temp Pulse Resp BP Pulse Ox 98.8 F 88 18 165/81 98 10/23/17 10:46 10/23/17 10:46 10/23/17 10:46 10/23/17 10:46 10/23/17 10:46 - General physical appearance well developed, well nourished, no distress - Neck no masses, no bruits, trachea midline - Respiratory normal expansion, normal respiratory effort, clear to auscultation - Cardiovascular Cardiovascular exam: Present: RRR, no murmurs/rubs/gallops - Abdomen Abdomen general surgery: Present: bowel sounds present, tender, guarding, rebound, rigid Abdominal Tenderness: Present: diffusely (Positive Naik sign) - Musculoskeletal Present: normal posture - Psychiatric Psychiatric general surgery: Present: oriented to person, oriented to place, oriented to time Exam Initial Vital Signs Temp Pulse Resp BP Pulse Ox 98.8 F 88 18 98 10/23/17 10:46 10/23/17 10:46 10/23/17 10:46 10/23/17 10:46 10/23/17 10:46 Results - Labs 10/23/17 11:17 10/23/17 11:16 Abnormal lab results WBC 16.8 K/mcL (4.3-11.1) H 10/23/17 11:17 MPV 9.1 fL (9.4-12.4) L 10/23/17 11:17 Neutrophils # 13.5 K/mcL (1.6-8.9) H 10/23/17 11:17 Monocytes # 1.7 K/mcL (0.0-1.3) H 10/23/17 11:17 PT 13.8 Seconds (9.4-12.1) H 10/23/17 11:17 Sodium 121 mEq/L (136-145) L 10/23/17 11:16 Chloride 88 mEq/L (98-107) L 10/23/17 11:16 Glucose 127 mg/dL (70-105) H 10/23/17 11:16 Calculated Osmolality 253 (280-300) L 10/23/17 11:16 Total Bilirubin 3.3 mg/dL (0.3-1.0) H 10/23/17 11:16 Direct Bilirubin 0.7 mg/dL (0.0-0.2) H 10/23/17 11:16 Indirect Bilirubin 2.6 mg/dL (0.0-1.2) H 10/23/17 11:16 Lipase < 3 Units/L (11-82) L 10/23/17 11:16 Urine Color [place] (Yellow) A 10/23/17 11:51 Urine Clarity Cloudy (Clear) A 10/23/17 11:51 Urine Protein 100 mg/dL (Neg-Trace) H 10/23/17 11:51 Urine Ketones Trace mg/dL (Negative) H 10/23/17 11:51 Urine Blood Large (Negative) H 10/23/17 11:51 Urine Nitrite Positive (Negative) A 10/23/17 11:51 Urine Bilirubin Small (Negative) H 10/23/17 11:51 Urine Urobilinogen 4.0 mg/dL (Normal) H 10/23/17 11:51 Ur Leukocyte Esterase Moderate (Negative) H 10/23/17 11:51 Urine Microscopic RBC 5-15 per hpf (0-3) H 10/23/17 11:51 Urine Microscopic WBC TNTC per hpf (0-3) H 10/23/17 11:51 Urine Bacteria Many per hpf (None-Few) H 10/23/17 11:51 Ur Culture Indicated? YES (NO) A 10/23/17 11:51 Acetaminophen < 10 mcg/mL (10-20) L 10/23/17 11:16 All other labs normal. Consult Discharge Plan - Plan Referrals: Mercedes Arreguin, VASCULAR PHYSICIAN [Primary Care Provider] - <Ha Pereira - Last Filed: 10/24/17 08:08> Date of Encounter: 10/23/17 Review of Systems All systems PM: The remainder of the systems were reviewed and are negative General Surgery Exam Initial Vital Signs Temp Pulse Resp BP Pulse Ox 98.8 F 88 18 165/81 98 10/23/17 10:46 10/23/17 10:46 10/23/17 10:46 10/23/17 10:46 10/23/17 10:46 Exam Initial Vital Signs Temp Pulse Resp BP Pulse Ox 98.8 F 88 18 165/81 98 10/23/17 10:46 10/23/17 10:46 10/23/17 10:46 10/23/17 10:46 10/23/17 10:46 Results - Labs 10/24/17 03:24 10/24/17 06:00 Abnormal lab results WBC 13.5 K/mcL (4.3-11.1) H 10/24/17 03:24 RBC 3.97 M/mcL (4.19-5.50) L 10/24/17 03:24 Hgb 11.8 g/dL (12.9-16.9) L D 10/24/17 03:24 Hct 34.2 % (37.5-50.1) L 10/24/17 03:24 Neutrophils # 11.3 K/mcL (1.6-8.9) H 10/24/17 03:24 PT 13.8 Seconds (9.4-12.1) H 10/23/17 11:17 Sodium 122 mEq/L (136-145) L 10/24/17 06:00 Chloride 91 mEq/L (98-107) L 10/24/17 03:24 Est GFR (Non-Af Amer) 55 (> 60) L 10/24/17 03:24 Glucose 115 mg/dL (70-105) H 10/24/17 03:24 Calculated Osmolality 259 (280-300) L 10/24/17 03:24 Calcium 7.9 mg/dL (8.6-10.3) L 10/24/17 03:24 Magnesium 1.5 mg/dL (1.6-2.6) L 10/24/17 03:24 Total Bilirubin 3.2 mg/dL (0.3-1.0) H 10/24/17 03:24 Direct Bilirubin 0.7 mg/dL (0.0-0.2) H 10/23/17 11:16 Indirect Bilirubin 2.6 mg/dL (0.0-1.2) H 10/23/17 11:16 Serum Total Protein 5.4 g/dL (6.4-8.9) L 10/24/17 03:24 Albumin 2.9 g/dL (3.5-5.7) L 10/24/17 03:24 Lipase < 3 Units/L (11-82) L 10/23/17 11:16 Urine Color [place] (Yellow) A 10/23/17 11:51 Urine Clarity Cloudy (Clear) A 10/23/17 11:51 Urine Protein 100 mg/dL (Neg-Trace) H 10/23/17 11:51 Urine Ketones Trace mg/dL (Negative) H 10/23/17 11:51 Urine Blood Large (Negative) H 10/23/17 11:51 Urine Nitrite Positive (Negative) A 10/23/17 11:51 Urine Bilirubin Small (Negative) H 10/23/17 11:51 Urine Urobilinogen 4.0 mg/dL (Normal) H 10/23/17 11:51 Ur Leukocyte Esterase Moderate (Negative) H 10/23/17 11:51 Urine Microscopic RBC 5-15 per hpf (0-3) H 10/23/17 11:51 Urine Microscopic WBC TNTC per hpf (0-3) H 10/23/17 11:51 Urine Bacteria Many per hpf (None-Few) H 10/23/17 11:51 Ur Culture Indicated? YES (NO) A 10/23/17 11:51 Acetaminophen < 10 mcg/mL (10-20) L 10/23/17 11:16 Diabetes panel 10/23/17 10/23/17 10/23/17 Range/Units 19:20 21:08 23:07 Sodium 116 L* 121 L 121 L (136-145) mEq/L Potassium (3.5-5.1) mEq/L Chloride (98-107) mEq/L Carbon Dioxide (23-29) mEq/L BUN (8-23) mg/dL Creatinine (0.70-1.30) mg/dL Glucose (70-105) mg/dL Calcium (8.6-10.3) mg/dL AST (13-39) Units/L ALT (7-52) Units/L Alkaline Phosphatase (34-104) Units/L Albumin (3.5-5.7) g/dL Triglycerides (< 150) mg/dL HDL Cholesterol (40-59) mg/dL 10/24/17 10/24/17 10/24/17 Range/Units 01:21 03:24 06:00 Sodium 122 L 122 L 122 L (136-145) mEq/L Potassium 4.0 (3.5-5.1) mEq/L Chloride 91 L (98-107) mEq/L Carbon Dioxide 24 (23-29) mEq/L BUN 23 (8-23) mg/dL Creatinine 1.29 (0.70-1.30) mg/dL Glucose 115 H (70-105) mg/dL Calcium 7.9 L (8.6-10.3) mg/dL AST 20 (13-39) Units/L ALT 20 (7-52) Units/L Alkaline Phosphatase 55 (34-104) Units/L Albumin 2.9 L (3.5-5.7) g/dL Triglycerides 42 (< 150) mg/dL HDL Cholesterol 45 (40-59) mg/dL Calcium panel 10/24/17 Range/Units 03:24 Calcium 7.9 L (8.6-10.3) mg/dL Albumin 2.9 L (3.5-5.7) g/dL Pituitary panel 10/23/17 10/23/17 10/23/17 Range/Units 19:20 21:08 23:07 Sodium 116 L* 121 L 121 L (136-145) mEq/L Potassium (3.5-5.1) mEq/L Chloride (98-107) mEq/L Carbon Dioxide (23-29) mEq/L BUN (8-23) mg/dL Creatinine (0.70-1.30) mg/dL Glucose (70-105) mg/dL Calcium (8.6-10.3) mg/dL 10/24/17 10/24/17 10/24/17 Range/Units 01:21 03:24 06:00 Sodium 122 L 122 L 122 L (136-145) mEq/L Potassium 4.0 (3.5-5.1) mEq/L Chloride 91 L (98-107) mEq/L Carbon Dioxide 24 (23-29) mEq/L BUN 23 (8-23) mg/dL Creatinine 1.29 (0.70-1.30) mg/dL Glucose 115 H (70-105) mg/dL Calcium 7.9 L (8.6-10.3) mg/dL Adrenal panel 10/23/17 10/23/17 10/23/17 Range/Units 19:20 21:08 23:07 Sodium 116 L* 121 L 121 L (136-145) mEq/L Potassium (3.5-5.1) mEq/L Chloride (98-107) mEq/L Carbon Dioxide (23-29) mEq/L BUN (8-23) mg/dL Creatinine (0.70-1.30) mg/dL Glucose (70-105) mg/dL Calcium (8.6-10.3) mg/dL Total Bilirubin (0.3-1.0) mg/dL AST (13-39) Units/L ALT (7-52) Units/L Alkaline Phosphatase (34-104) Units/L Albumin (3.5-5.7) g/dL 10/24/17 10/24/17 10/24/17 Range/Units 01:21 03:24 06:00 Sodium 122 L 122 L 122 L (136-145) mEq/L Potassium 4.0 (3.5-5.1) mEq/L Chloride 91 L (98-107) mEq/L Carbon Dioxide 24 (23-29) mEq/L BUN 23 (8-23) mg/dL Creatinine 1.29 (0.70-1.30) mg/dL Glucose 115 H (70-105) mg/dL Calcium 7.9 L (8.6-10.3) mg/dL Total Bilirubin 3.2 H (0.3-1.0) mg/dL AST 20 (13-39) Units/L ALT 20 (7-52) Units/L Alkaline Phosphatase 55 (34-104) Units/L Albumin 2.9 L (3.5-5.7) g/dL All other labs normal. - Attending Attestation I examined this patient and my medical decision-making was reviewed with the Resident Physician. I agree with the documented findings, disposition and treatment plan as described except to the extent set forth below. I personally reviewed the assessment and evaluation and agree with the above plan. Patient initially presented to the hospital approximately several days ago with similar episode of right upper quadrant abdominal pain he was tissue from the emergency room and instructed to follow-up as an outpatient with our office however 2 days later he had increasing and worsening pain symptoms. No vomiting and he states normally he does does not have any diarrhea or constipation but has not had any bowel movements for 3 days. On examination he is tender to palpation right upper quadrant but the pain is less then it was upon admission. Mild scleral icterus is noted. Mild leukocytosis noted and ultrasound shows evidence of gallbladder wall thickening consistent with cholecystitis. He does have elevated bilirubin but I think this is related to the inflammation of the gallbladder and surrounding inflammation around the common bile duct. We will order a CT scan of the abdomen and pelvis to better assess the surrounding gallbladder inflammation, however think it would be appropriate tentatively plan for laparoscopic cholecystectomy with cholangiogram for tomorrow. Risk and benefits have been discussed with the patient and family and they agree to the above plan.
[2017-10-23] MEDS: MetroNIDAZOLE 500 MG/100 ML 500 MG/100 ML BAG IVPB SCH (19:52)
[2017-10-23] MEDS: *HR* Heparin 5,000 UNIT/ML VIAL SQ SCH (22:12)
--- NOTE | 2017-10-23 23:21 | Event Note ---
Date of Encounter: 10/23/17 Time of Encounter: 20:10 Alerted by pts. nurse WILL Jacinto the patient's sodium on a redraw was now 116. Previously 121. Patient receiving 0.9 NS at 100 mL's per hour. Nurse reported patient alert and oriented 3 and asymptomatic. Nurse reported approximately 100 and patient's Bee bag which was used for ordered urine sodium and osmolality. Second ordered redraw of sodium was 121. IV fluids turned down from 100 mL's per hour to 50 mL's per hour. Sodium redraw scheduled for 23:30 and 01:30. Medication order placed to stop patient's 0.9 NS fluids sodium close to or at 124 on first or second redraw to prevent patient's sodium from increasing greater than 8 and BQ in 24 hours. Continue cardiac telemetry. Patient and output to be monitored closely overnight.
[2017-10-24 04:29] LABS: Basophils % 0.2 %; Eosinophils % 0.2 %; Hematocrit 34.2 % (37.5-50.1); Hemoglobin 11.8 g/dL (12.9-16.9); Immature Granulocytes % 0.4 % (0-4); Immature Platelets 4.5 % (1.1-6.1); Lymphocytes # 0.9 K/mcL (0.6-4.6); Lymphocytes % 6.9 %; Mean Corpuscular HGB Conc 34.5 g/dL (31.6-35.5); Mean Corpuscular Hemoglobin 29.7 pg (28.0-33.3); Mean Corpuscular Volume 86.1 fL (83.0-100.0); Mean Platelet Volume 9.6 fL (9.4-12.4); Monocytes # 1.1 K/mcL (0.0-1.3); Monocytes % 8.1 %; Neutrophils # 11.3 K/mcL (1.6-8.9); Platelet Count 199 K/mcL (140-400); Red Blood Count 3.97 M/mcL (4.19-5.50); Red Cell Distribution Width 13.5 % (11.5-14.5); Segmented Neutrophils % 84.2 %
[2017-10-24 04:52] LABS: Alanine Aminotransferase 20 Units/L (7-52); Albumin 2.9 g/dL (3.5-5.7); Albumin/Globulin Ratio 1.2 (1.1-2.2); Alkaline Phosphatase 55 Units/L (34-104); Aspartate Amino Transferase 20 Units/L (13-39); BUN/Creatinine Ratio 18 (6-26); Bilirubin,Total 3.2 mg/dL (0.3-1.0); Blood Urea Nitrogen 23 mg/dL (8-23); Calcium 7.9 mg/dL (8.6-10.3); Carbon Dioxide 24 mEq/L (23-29); Chloride 91 mEq/L (98-107); Chol/HDL Ratio 1.9 (0-4.9); Cholesterol 86 mg/dL (< 200); Globulin 2.5 g/dL (2.4-3.5); Glucose 115 mg/dL (70-105); HDL Cholesterol 45 mg/dL (40-59); LDL Cholesterol,Calculated 33 mg/dL (0-99); Magnesium 1.5 mg/dL (1.6-2.6); Osmolality,Calculated 259 (280-300); Sodium 122 mEq/L (136-145); Total Protein 5.4 g/dL (6.4-8.9); Triglycerides 42 mg/dL (< 150); eGFR For Non-African Americans 55 (> 60)
[2017-10-24] MEDS: *HR* Heparin 5,000 UNIT/ML VIAL SQ SCH (05:04)
[2017-10-24] MEDS: Pantoprazole 40 MG VIAL IVP SCH ×2 (05:10→18:02)
[2017-10-24] MEDS: MetroNIDAZOLE 500 MG/100 ML 500 MG/100 ML BAG IVPB SCH ×3 (05:10→21:18)
[2017-10-24] MEDS ORDERED: *HR* FentaNYL (PF) 100 MCG/2 ML VIAL ONE (07:36)
[2017-10-24] MEDS ORDERED: *HR* Midazolam HCl 2 MG/2 ML VIAL ONE (07:36)
[2017-10-24] MEDS ORDERED: Lidocaine -MPF 4% 5 ML AMPUL ONE (07:36)
[2017-10-24] MEDS ORDERED: Ondansetron 4 MG/2 ML VIAL ONE (07:36)
[2017-10-24] MEDS ORDERED: *HR* Rocuronium Bromide 50 MG/5 ML VIAL ONE (07:36)
[2017-10-24] MEDS ORDERED: Neostigmine Methylsulfate 3 MG/3 ML SYRINGE ONE (07:36)
[2017-10-24] MEDS ORDERED: *HR* Succinylcholine 200 MG/10 ML VIAL IVP ONE (07:36)
[2017-10-24] MEDS ORDERED: Lidocaine -MPF 2% 2 ML VIAL ONE (07:36)
[2017-10-24] MEDS ORDERED: Dexamethasone 4 MG/ML VIAL ONE (07:36)
[2017-10-24] MEDS ORDERED: *HR* Propofol 200 MG/20 ML VIAL IVP ONE (07:36)
[2017-10-24] MEDS ORDERED: Ketorolac 30 MG/ML VIAL ONE (07:36)
--- NOTE | 2017-10-24 07:58 | Anesthesia Evaluation PreOp ---
Date of Encounter: 10/24/17 Time of Encounter: 08:13 - Past History Planned Operation: LAPAROSCOPIC CHOLECYSTECTOMY Cardiac History: HTN, Hyperlipidemia Pulmonary History: Denies Any Significant HX [employer] MA[employer]GER History: Denies Any Significant HX Other Medical History: GERD (OCCASIONAL) Anesthesia History: No Prior Anesthetic Complications, Past Anesthesia Alcohol Use: occasionally Drug use: none Medications and Allergies Aspirin [Lo-Dose Aspirin EC] 81 mg PO DAILY 10/23/17 [History] Atorvastatin [Lipitor] 20 mg PO DAILY 10/23/17 [History] Cholecalciferol (D-3) [Vitamin D] 1,000 unit PO DAILY 10/23/17 [History] Lisinopril/Hydrochlorothiazide [Zestoretic 20-12.5 mg Tablet] 0.5 tab PO HS [History] Lisinopril/Hydrochlorothiazide [Zestoretic 20-12.5 mg Tablet] 1 tab PO QAM 10/23 [History] Ranitidine HCl [Zantac] 300 mg PO DAILY PRN 10/23/17 [History] 3 Allergy/AdvReac Type Severity Reaction Status Date / Time Penicillins [PCN] Allergy Hives Verified 10/23/17 13:56 - Meds/Allergy Pre-op Review Medications Reviewed: Yes Allergies Reviewed: Yes Beta Blockers on Current Med List: No Anesthesia Results - Labs 10/24/17 03:24 10/24/17 06:00 Laboratory Last Values WBC 13.5 K/mcL (4.3-11.1) H 10/24/17 03:24 RBC 3.97 M/mcL (4.19-5.50) L 10/24/17 03:24 Hgb 11.8 g/dL (12.9-16.9) L D 10/24/17 03:24 Hct 34.2 % (37.5-50.1) L 10/24/17 03:24 MCV 86.1 fL (83.0-100.0) 10/24/17 03:24 MCH 29.7 pg (28.0-33.3) 10/24/17 03:24 MCHC 34.5 g/dL (31.6-35.5) 10/24/17 03:24 RDW 13.5 % (11.5-14.5) 10/24/17 03:24 Plt Count 199 K/mcL (140-400) 10/24/17 03:24 MPV 9.6 fL (9.4-12.4) 10/24/17 03:24 Immature Gran % 0.4 % (0-4) 10/24/17 03:24 Seg Neutrophils % 84.2 % 10/24/17 03:24 Lymphocytes % 6.9 % 10/24/17 03:24 Monocytes % 8.1 % 10/24/17 03:24 Eosinophils % 0.2 % 10/24/17 03:24 Basophils % 0.2 % 10/24/17 03:24 Neutrophils # 11.3 K/mcL (1.6-8.9) H 10/24/17 03:24 Lymphocytes # 0.9 K/mcL (0.6-4.6) 10/24/17 03:24 Monocytes # 1.1 K/mcL (0.0-1.3) 10/24/17 03:24 Eosinophils # 0.0 K/mcL (0.0-0.6) 10/24/17 03:24 Basophils # 0.0 K/mcL (0.0-0.2) 10/24/17 03:24 Immature Plt Fraction 4.5 % (1.1-6.1) 10/24/17 03:24 PT 13.8 Seconds (9.4-12.1) H 10/23/17 11:17 INR 1.2 10/23/17 11:17 Sodium 122 mEq/L (136-145) L 10/24/17 06:00 Potassium 4.0 mEq/L (3.5-5.1) 10/24/17 03:24 Chloride 91 mEq/L (98-107) L 10/24/17 03:24 Carbon Dioxide 24 mEq/L (23-29) 10/24/17 03:24 BUN 23 mg/dL (8-23) 10/24/17 03:24 Creatinine 1.29 mg/dL (0.70-1.30) 10/24/17 03:24 Est GFR ( Amer) > 60 (> 60) 10/24/17 03:24 Est GFR (Non-Af Amer) 55 (> 60) L 10/24/17 03:24 BUN/Creatinine Ratio 18 (6-26) 10/24/17 03:24 Glucose 115 mg/dL (70-105) H 10/24/17 03:24 Calculated Osmolality 259 (280-300) L 10/24/17 03:24 Lactic Acid 1.6 mmol/L (0.5-2.2) 10/23/17 11:30 Calcium 7.9 mg/dL (8.6-10.3) L 10/24/17 03:24 Magnesium 1.5 mg/dL (1.6-2.6) L 10/24/17 03:24 Total Bilirubin 3.2 mg/dL (0.3-1.0) H 10/24/17 03:24 Direct Bilirubin 0.7 mg/dL (0.0-0.2) H 10/23/17 11:16 Indirect Bilirubin 2.6 mg/dL (0.0-1.2) H 10/23/17 11:16 AST 20 Units/L (13-39) 10/24/17 03:24 ALT 20 Units/L (7-52) 10/24/17 03:24 Alkaline Phosphatase 55 Units/L (34-104) 10/24/17 03:24 Serum Total Protein 5.4 g/dL (6.4-8.9) L 10/24/17 03:24 Albumin 2.9 g/dL (3.5-5.7) L 10/24/17 03:24 Globulin 2.5 g/dL (2.4-3.5) 10/24/17 03:24 Albumin/Globulin Ratio 1.2 (1.1-2.2) 10/24/17 03:24 Triglycerides 42 mg/dL (< 150) 10/24/17 03:24 Cholesterol 86 mg/dL (< 200) 10/24/17 03:24 LDL Cholesterol, Calc 33 mg/dL (0-99) 10/24/17 03:24 VLDL Cholesterol, Calc 8 mg/dL (< 31) 10/24/17 03:24 HDL Cholesterol 45 mg/dL (40-59) 10/24/17 03:24 Cholesterol/HDL Ratio 1.9 (0-4.9) 10/24/17 03:24 Lipase < 3 Units/L (11-82) L 10/23/17 11:16 Urine Color [place] (Yellow) A 10/23/17 11:51 Urine Clarity Cloudy (Clear) A 10/23/17 11:51 Urine pH 6.0 pH Units (5.0-8.0) 10/23/17 11:51 Ur Specific [place] 1.025 (1.010-1.025) 10/23/17 11:51 Urine Protein 100 mg/dL (Neg-Trace) H 10/23/17 11:51 Urine Glucose (UA) Normal mg/dL (Normal) 10/23/17 11:51 Urine Ketones Trace mg/dL (Negative) H 10/23/17 11:51 Urine Blood Large (Negative) H 10/23/17 11:51 Urine Nitrite Positive (Negative) A 10/23/17 11:51 Urine Bilirubin Small (Negative) H 10/23/17 11:51 Urine Urobilinogen 4.0 mg/dL (Normal) H 10/23/17 11:51 Ur Leukocyte Esterase Moderate (Negative) H 10/23/17 11:51 Urine Microscopic RBC 5-15 per hpf (0-3) H 10/23/17 11:51 Urine Microscopic WBC TNTC per hpf (0-3) H 10/23/17 11:51 Ur Squamous Epith Cells Few per lpf (None-Few) 10/23/17 11:51 Urine Bacteria Many per hpf (None-Few) H 10/23/17 11:51 Hyaline Casts None Seen per lpf (None-Few) 10/23/17 11:51 Ur Culture Indicated? 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) Anesthesia Exam Vital Signs/O2 Sat/Glucose, Most Recent Temp Pulse Resp BP Pulse Ox 99.8 F H 83 16 98/63 92 10/24/17 07:01 10/24/17 07:01 10/24/17 07:01 10/24/17 07:01 10/24/17 07:01 Blood Glucose* 109 Height: 1.8 M Weight: 80 KG - BMI 25 NPO (# of Hours): 8 - HEENT Pupil (Motor): Pupils equal Mallampati: I Teeth: Normal Oral Opening: Greater than 3 - Cardiac Rhythm: Regular - Pulmonary Breath Sounds: bilateral Clear Respiratory Effort: Symmetrical Anesthesia Assess/Plan ASA Score: 3 Modified [place] Scale for Level of Consciousness: Cooperative, oriented, and tranquil Anesthetic Plan: General Monitoring Plan: Standard Monitors Recovery Plan: PACU Anes Supervising Prov Stmt: Patient informed and consented. Risks, benefits, and alternatives discussed. Patient wishes to proceed.
[2017-10-24] MEDS ORDERED: Ondansetron 4 MG/2 ML VIAL IVP ONE (08:10)
[2017-10-24] MEDS ORDERED: *HR* Labetalol 20 MG/4 ML SYRINGE IVP PRN (08:10)
[2017-10-24] MEDS ORDERED: *HR* Morphine 2 MG/ML SYRINGE IVP PRN (08:10)
[2017-10-24] MEDS ORDERED: Dexamethasone 4 MG/ML VIAL IVP ONE (08:10)
[2017-10-24] MEDS ORDERED: Isovue-300 50 ML VIAL IVP ONE (08:59)
[2017-10-24] MEDS ORDERED: Acetaminophen IV 1,000 MG/100 ML INFUS..BTL ONE (09:10)
[2017-10-24] MEDS ORDERED: *HR* PHENYLEPHRINE 1,000 MCG/10 ML SYRINGE IVP ONE (09:26)
--- NOTE | 2017-10-24 09:49 | Urology - Consult Note ---
Date of Encounter: 10/24/17 Time of Encounter: 09:46 - Assessment and Plan (1) UTI (urinary tract infection) Current Visit: Yes Status: Acute Assessment and plan: I personally reviewed the CT scan and did not feel that his prostate was overly enlarged. It is very possible he has a urinary tract infection but we will need to confirm when the culture is final. Okay to remove the Bee catheter when the primary service deems appropriate. We will likely keep in place for at least 24 hours because he is to undergo a cholecystectomy today. If the patient's urine culture is positive I recommend treatment with culture specific antibiotics for at least 10 days. He may not require tamsulosin as his prostate was not overly enlarged on the CT scan. No urologic follow-up needed unless he is having urinary symptoms. Qualifiers: Urinary tract infection type: site unspecified Hematuria presence: with hematuria Qualified Code(s): N39.0 - Urinary tract infection, site not specified; R31.9 - Hematuria, unspecified Urology CN:HPI Consult date: 10/24/17 History of present illness: 72-year-old male admitted with abdominal pain and irritative urinary symptoms. CT scan confirms acute cholecystitis with an obstructing gallstone. He reports increasing urgency, frequency, dysuria. Catheter was placed with return of minimal urine indicating he was not in retention. Urinalysis suggests possible infection but culture is pending. Past Med Surg Social Fam HX - Past Medical History Medical history: GERD, hyperlipidemia, hypertension Psychiatric history: no psych history - Past Surgical History Surgical History: no surgical history - Social History Smoking Status: Never smoker Smokeless Tobacco Status: No Alcohol use: occasionally Drug use: none - Family History Mother Hx Family Endocrine Disorder: Yes (DM) Father Race: Family Member Ethnicity: Non- Living Status: Age at : 75 Cause of : Infective TB Hx Family Respiratory Disorders: Yes (TB, COPD) Brother Race: Family Member Ethnicity: Non- Living Status: Age at : 51 Cause of : Aneurysm Hx Family Cardiac Disorders: Yes (Aneurysm) Sister Race: Family Member Ethnicity: Non- Living Status: Age at : 82 Cause of : Accident Hx Family Neurologic Disorders: Yes (Alzheimer's disease) Medications and Allergies Aspirin [Lo-Dose Aspirin EC] 81 mg PO DAILY 10/23/17 [History] Atorvastatin [Lipitor] 20 mg PO DAILY 10/23/17 [History] Cholecalciferol (D-3) [Vitamin D] 1,000 unit PO DAILY 10/23/17 [History] Lisinopril/Hydrochlorothiazide [Zestoretic 20-12.5 mg Tablet] 0.5 tab PO HS [History] Lisinopril/Hydrochlorothiazide [Zestoretic 20-12.5 mg Tablet] 1 tab PO QAM 10/23 [History] Ranitidine HCl [Zantac] 300 mg PO DAILY PRN 10/23/17 [History] 3 Allergy/AdvReac Type Severity Reaction Status Date / Time Penicillins [PCN] Allergy Hives Verified 10/23/17 13:56 Review of Systems - Constitutional fatigue, malaise, no chills, no fever(s) - EENT Nose, mouth and throat: no dizziness - Cardiovascular no chest pain - Respiratory no cough - Gastrointestinal abdominal pain - Genitourinary urinary frequency - Musculoskeletal back pain - Integumentary no erythema - Neurological no confusion - Psychiatric no anxiety - Hematologic/Lymphatic no easy bleeding - Allergic/Immunologic no throat swelling Exam Initial Vital Signs Temp Pulse Resp BP Pulse Ox 98.8 F 88 18 165/81 98 10/23/17 10:46 10/23/17 10:46 10/23/17 10:46 10/23/17 10:46 10/23/17 10:46 - General physical appearance Present: no distress - Eyes Present: PERRL, conjunctiva is clear - ENT Present: normal nares - Neck Present: no masses - Respiratory Present: normal respiratory effort - Cardiovascular Cardiovascular exam IM: RRR - Abdomen Abdomen: Present: soft, tender. Absent: suprapubic tenderness - Integumentary Present: no rash - Neurologic Present: normal coordination. Absent: disoriented, confused - Additional Findings Bee catheter draining clear urine Urology Results - Labs 10/24/17 03:24 10/24/17 06:00 Abnormal lab results WBC 13.5 K/mcL (4.3-11.1) H 10/24/17 03:24 RBC 3.97 M/mcL (4.19-5.50) L 10/24/17 03:24 Hgb 11.8 g/dL (12.9-16.9) L D 10/24/17 03:24 Hct 34.2 % (37.5-50.1) L 10/24/17 03:24 Neutrophils # 11.3 K/mcL (1.6-8.9) H 10/24/17 03:24 PT 13.8 Seconds (9.4-12.1) H 10/23/17 11:17 Sodium 122 mEq/L (136-145) L 10/24/17 06:00 Chloride 91 mEq/L (98-107) L 10/24/17 03:24 Est GFR (Non-Af Amer) 55 (> 60) L 10/24/17 03:24 Glucose 115 mg/dL (70-105) H 10/24/17 03:24 Calculated Osmolality 259 (280-300) L 10/24/17 03:24 Calcium 7.9 mg/dL (8.6-10.3) L 10/24/17 03:24 Magnesium 1.5 mg/dL (1.6-2.6) L 10/24/17 03:24 Total Bilirubin 3.2 mg/dL (0.3-1.0) H 10/24/17 03:24 Direct Bilirubin 0.7 mg/dL (0.0-0.2) H 10/23/17 11:16 Indirect Bilirubin 2.6 mg/dL (0.0-1.2) H 10/23/17 11:16 Serum Total Protein 5.4 g/dL (6.4-8.9) L 10/24/17 03:24 Albumin 2.9 g/dL (3.5-5.7) L 10/24/17 03:24 Lipase < 3 Units/L (11-82) L 10/23/17 11:16 Urine Color Yolo (Yellow) A 10/23/17 11:51 Urine Clarity Cloudy (Clear) A 10/23/17 11:51 Urine Protein 100 mg/dL (Neg-Trace) H 10/23/17 11:51 Urine Ketones Trace mg/dL (Negative) H 10/23/17 11:51 Urine Blood Large (Negative) H 10/23/17 11:51 Urine Nitrite Positive (Negative) A 10/23/17 11:51 Urine Bilirubin Small (Negative) H 10/23/17 11:51 Urine Urobilinogen 4.0 mg/dL (Normal) H 10/23/17 11:51 Ur Leukocyte Esterase Moderate (Negative) H 10/23/17 11:51 Urine Microscopic RBC 5-15 per hpf (0-3) H 10/23/17 11:51 Urine Microscopic WBC TNTC per hpf (0-3) H 10/23/17 11:51 Urine Bacteria Many per hpf (None-Few) H 10/23/17 11:51 Ur Culture Indicated? YES (NO) A 10/23/17 11:51 Acetaminophen < 10 mcg/mL (10-20) L 10/23/17 11:16 Diabetes panel 10/23/17 10/23/17 10/23/17 Range/Units 19:20 21:08 23:07 Sodium 116 L* 121 L 121 L (136-145) mEq/L Potassium (3.5-5.1) mEq/L Chloride (98-107) mEq/L Carbon Dioxide (23-29) mEq/L BUN (8-23) mg/dL Creatinine (0.70-1.30) mg/dL Glucose (70-105) mg/dL Calcium (8.6-10.3) mg/dL AST (13-39) Units/L ALT (7-52) Units/L Alkaline Phosphatase (34-104) Units/L Albumin (3.5-5.7) g/dL Triglycerides (< 150) mg/dL HDL Cholesterol (40-59) mg/dL 10/24/17 10/24/17 10/24/17 Range/Units 01:21 03:24 06:00 Sodium 122 L 122 L 122 L (136-145) mEq/L Potassium 4.0 (3.5-5.1) mEq/L Chloride 91 L (98-107) mEq/L Carbon Dioxide 24 (23-29) mEq/L BUN 23 (8-23) mg/dL Creatinine 1.29 (0.70-1.30) mg/dL Glucose 115 H (70-105) mg/dL Calcium 7.9 L (8.6-10.3) mg/dL AST 20 (13-39) Units/L ALT 20 (7-52) Units/L Alkaline Phosphatase 55 (34-104) Units/L Albumin 2.9 L (3.5-5.7) g/dL Triglycerides 42 (< 150) mg/dL HDL Cholesterol 45 (40-59) mg/dL Calcium panel 10/24/17 Range/Units 03:24 Calcium 7.9 L (8.6-10.3) mg/dL Albumin 2.9 L (3.5-5.7) g/dL Pituitary panel 10/23/17 10/23/17 10/23/17 Range/Units 19:20 21:08 23:07 Sodium 116 L* 121 L 121 L (136-145) mEq/L Potassium (3.5-5.1) mEq/L Chloride (98-107) mEq/L Carbon Dioxide (23-29) mEq/L BUN (8-23) mg/dL Creatinine (0.70-1.30) mg/dL Glucose (70-105) mg/dL Calcium (8.6-10.3) mg/dL 10/24/17 10/24/17 10/24/17 Range/Units 01:21 03:24 06:00 Sodium 122 L 122 L 122 L (136-145) mEq/L Potassium 4.0 (3.5-5.1) mEq/L Chloride 91 L (98-107) mEq/L Carbon Dioxide 24 (23-29) mEq/L BUN 23 (8-23) mg/dL Creatinine 1.29 (0.70-1.30) mg/dL Glucose 115 H (70-105) mg/dL Calcium 7.9 L (8.6-10.3) mg/dL Adrenal panel 10/23/17 10/23/17 10/23/17 Range/Units 19:20 21:08 23:07 Sodium 116 L* 121 L 121 L (136-145) mEq/L Potassium (3.5-5.1) mEq/L Chloride (98-107) mEq/L Carbon Dioxide (23-29) mEq/L BUN (8-23) mg/dL Creatinine (0.70-1.30) mg/dL Glucose (70-105) mg/dL Calcium (8.6-10.3) mg/dL Total Bilirubin (0.3-1.0) mg/dL AST (13-39) Units/L ALT (7-52) Units/L Alkaline Phosphatase (34-104) Units/L Albumin (3.5-5.7) g/dL 10/24/17 10/24/17 10/24/17 Range/Units 01:21 03:24 06:00 Sodium 122 L 122 L 122 L (136-145) mEq/L Potassium 4.0 (3.5-5.1) mEq/L Chloride 91 L (98-107) mEq/L Carbon Dioxide 24 (23-29) mEq/L BUN 23 (8-23) mg/dL Creatinine 1.29 (0.70-1.30) mg/dL Glucose 115 H (70-105) mg/dL Calcium 7.9 L (8.6-10.3) mg/dL Total Bilirubin 3.2 H (0.3-1.0) mg/dL AST 20 (13-39) Units/L ALT 20 (7-52) Units/L Alkaline Phosphatase 55 (34-104) Units/L Albumin 2.9 L (3.5-5.7) g/dL All other labs normal. Consult Discharge Plan - Plan Referrals: Mercedes Arreguin, MACHINE STRIPER [Primary Care Provider] -
[2017-10-24] MEDS ORDERED: *HR* Morphine 10 MG/ML VIAL ONE (10:16)
--- NOTE | 2017-10-24 10:29 | Operative Note ---
Date of procedure: 10/24/17 Pre-op diagnosis: Acute cholecystitis, hyperbilirubinemia Post-op diagnosis: same Procedure: Laparoscopic cholecystectomy with intraoperative cholangiogram. Anesthesia: GETA Surgeon: Ha Pereira Was there an parts room assistant present: No Wood And Hardware Outfitter Other: KRISTEN Dixon Estimated blood loss (cc): 40 Specimen: gallbladder and contents Condition: stable Disposition: PACU Procedure in Detail: Date of surgery: 10/24/17 After properly identifying the patient, the patient was brought to the operating room and placed in the supine position. After proper IV sedation was achieved followed by general endotracheal intubation, the patient's abdomen was prepped and draped in a normal sterile fashion. A timeout was performed noting the patient's name and type of procedure to be performed. An 11 blade scalpel was used to make a supraumbilical incision down to the level of the rectus fascia. Once the rectus fascia was incised and the abdomen entered, a 12 mm port was placed through the incision and the abdomen was insufflated with carbon dioxide. A laparoscopic camera was placed through the port which showed no injury to the intra-abdominal organs upon entry. A subxiphoid 5 mm port and a right subcostal margin 5 mm port were then placed under direct camera visualization. The patient was placed in a reverse Trendelenburg position and the abdomen was insufflated with carbon dioxide. The gallbladder appeared to be distended and tense with omental adhesions which were carefully and bluntly dissected away with a nontraumatic grasper. This allowed for visualization of an erythematous gallbladder consistent with acute cholecystitis. The gallbladder was decompressed using a laparoscopic needle decompression with syringe which allowed for removal of 120 mL of mild bilious fluid. Once this was performed the gallbladder was able to be grasped and retracted superiorly/anteriorly. The peritoneal covering overlying the infundibulum and the cystic duct were bluntly dissected with the [place] dissector. The presumed location of the cystic duct, which appeared to be dilated, was carefully isolated with a [place] dissector. Of note; the cystic artery appeared to be anterior to the cystic duct which was carefully isolated, clipped with laparoscopic clips, and incised laparoscopic scissors The nontraumatic grasper was exchanged for a Banerjee grasper and a cholangiogram catheter was then introduced through the side- port of the grasper. A laparoscopic clips were then placed distally along the cystic duct near the infundibulum and laparoscopic scissors were used to make an incision proximal to the clip. The cholangiogram catheter was then introduced through this opening and secured in place with a laparoscopic clip. Intraoperative laparoscopic cholangiogram was performed which demonstrated flow through the cystic duct into the common bile duct and small bowel without evidence of a filling defect. There was retrograde filling of the hepatic ducts and hepatic radicles. Once this was verified the cholangiogram catheter was removed and the cystic duct was examined. Due to the large diameter the cystic duct needed to be transected with a laparoscopic RUBINA stapler which was performed without difficulty. The gallbladder was then carefully dissected away from the gallbladder fossa with Bovie cauterization while Bovie cauterization was used to maintain hemostasis. Once dissected free it was removed from the abdomen via an Endobag. Reinspection of the right upper quadrant demonstrated mild oozing which was hemostatically controlled with Bovie cauterization. The right upper quadrant was irrigated with normal saline solution until the effluent was clear. Reinspection of the staple line and clips showed no evidence of bleeding. All ports are then removed from the abdomen after the abdomen was desufflated. The rectus fascia for the supraumbilical incision was reapproximated with a figure- of-eight 0 Vicryl suture. The subcutaneous tissue in this area and in the area of the 25 mm ports were infiltrated with half percent Marcaine solution with epinephrine. The supraumbilical incision was then reapproximated by closing the subcutaneous tissue with a 3-0 Vicryl suture and the epidermal and dermal layers for the remaining incisions were closed with 4-0 Monocryl sutures. Needle, sponge, and instrument counts were correct 2 and the incisions were covered with Steri-Strips and Band-Aids. The patient was aroused from IV sedation, extubated in the operating room without complication, and transported to the recovery room in stable condition.
--- NOTE | 2017-10-24 10:30 | Event Note ---
Date of Encounter: 10/24/17 Time of Encounter: 10:29 s/p lap CCY with IOC. No evidence of CBD stones. Ok to advance diet. Recommend patient stay overnight to ensure decreasing Bilirubin. If decreasing , then from a surgical standpoint the patient would be safe for discharge home.
[2017-10-24] MEDS: Aspirin Enteric Coated 81 MG Tablet PO SCH (10:31)
[2017-10-24] MEDS: Cholecalciferol (D-3) 1,000 UNIT TABLET PO SCH (10:32)
[2017-10-24] MEDS: Lisinopril-HCTZ 20-12.5mg TABLET PO SCH (10:32)
--- NOTE | 2017-10-24 11:11 | Anesthesia Evaluation Post Op ---
Date of Encounter: 10/24/17 Time of Encounter: 11:11 - Discharge PostOp Status: Transfer Patient to floor (Patient's vital signs have been reviewed. Patient is stable postoperatively and has adequately recovered from anesthesia. Patient is determined to have stable airway patency and respiratory function including respiratory rate and oxygen saturation. Patient has a stable heart rate, blood pressure and adequate hydration. Patients mental status is acceptable. Patients temperature is appropriate. Pain and nausea are adequately controlled.)
[2017-10-24] MEDS ORDERED: *HR* Promethazine 25 MG/ML VIAL IVP PRN (11:25)
[2017-10-24] MEDS ORDERED: *HR* OxyCODONE/APAP 7.5/325 TABLET PO PRN (11:25)
[2017-10-24] MEDS ORDERED: Acetaminophen 325 MG TABLET PO PRN (11:25)
[2017-10-24] MEDS ORDERED: MORPHINE SUL Oral CONC 10 MG/0.5 ML ORAL.SYG SL PRN (11:25)
[2017-10-24] MEDS ORDERED: Naloxone 0.4 MG/ML INJ IVP PRN (11:25)
--- NOTE | 2017-10-24 11:33 | Internal Med Progress Note ---
Hospitalist Progress Note - Encounter Date of Encounter: 10/24/17 Time of Encounter: 11:33 - Subjective Interval History: 72 M admitted and being managed for cholecystitis, suspected UTI Seen post- lap sara with family at bedside Calm, in no distress States "I'm fine" - Exam Vitals: Temp Pulse Resp BP Pulse Ox 98.0 F 79 14 100/71 95 10/24/17 11:05 10/24/17 11:05 10/24/17 11:05 10/24/17 11:05 10/24/17 11:05 Exam: VSS Gen: NAD, hard of hearing HEENT: Moist oral mucosa, sclera anicteric, not pale Chest: CTAB Heart: S1, S2 Abd: Incisions clean Extremities: No edema Neuro: Normal speech moves all limbs spontaneously - Assessment and Plan (1) Cholecystitis Current Visit: Yes Status: Acute Assessment and Plan: Patient with RUQ pain with CT findings and Gall bladder USS findings suggestive of Acute cholecystitis Associated bilirubinemia and leukocytosis of 16.8 on admission, improving POD 0 today s/p lap sara Continue Cipro and Flagyl Management per surgery recommendations (2) Abdominal pain Current Visit: Yes Status: Acute Assessment and Plan: See Cholecystitis for management plan (3) UTI (urinary tract infection) Current Visit: Yes Status: Suspected Assessment and Plan: Suspected U/A indicative of UTI and for culture. Patient is symptomatic Continue Cipro Follow culture reports (4) Hyponatremia Current Visit: Yes Status: Acute Assessment and Plan: Hypoosmolar Acute hyponatermia w/sodium of 121 on admission of unknown etiology. urine Osm is wnl Likely due to diuretics Na 122 Continue IVF MOnitor Na Check TSH Lipids are WNL (5) GERD (gastroesophageal reflux disease) Current Visit: Yes Status: Chronic Assessment and Plan: Hx of chronic GERD. IVP Protonix 40 mg BID. IVP Phenergan 12.5 mg Q6HR PRN for N /V. (6) HLD (hyperlipidemia) Current Visit: Yes Status: Chronic Assessment and Plan: Hx of chronic HLD. Lipid panel WNL. Continue patient's Lipitor. (7) HTN (hypertension) Current Visit: Yes Status: Chronic Assessment and Plan: Hx of chronic HTN. Monitor patient vital signs. Hold diuretics due to hyponatremia Continue IVF (8) DVT prophylaxis Current Visit: Yes Status: Acute Assessment and Plan: SQ Heparin 5,000 units Q8HR for DVT prophylaxis. Monitor pt. for signs of bleeding. (9) Enlarged prostate Current Visit: Yes Status: Acute Assessment and Plan: Enlarged prostate on CT of the abdomen/prostate on 10/21. Unknown if enlarged prostate playing a role in pts. urinary urgency/scant output. Nephrology and Urology consults pending - Time Spent with Patient Total time spent is greater than 50% in coordination of care (as documented) at patient's floor/unit and/or counseling patient: Plan of Care Discussed with: family Internal Medicine: Result - Labs CBC & Chem 7: 10/24/17 03:24 10/24/17 06:00 Labs: Short CBC 10/24/17 Range/Units 03:24 WBC 13.5 H (4.3-11.1) K/mcL Hgb 11.8 L D (12.9-16.9) g/dL Hct 34.2 L (37.5-50.1) % Plt Count 199 (140-400) K/mcL Neutrophils # 11.3 H (1.6-8.9) K/mcL BMP 10/23/17 10/23/17 10/23/17 19:20 21:08 23:07 Sodium 116 L* 121 L 121 L Potassium Chloride Carbon Dioxide BUN Creatinine Glucose Calcium 10/24/17 10/24/17 10/24/17 01:21 03:24 06:00 Sodium 122 L 122 L 122 L Potassium 4.0 Chloride 91 L Carbon Dioxide 24 BUN 23 Creatinine 1.29 Glucose 115 H Calcium 7.9 L Liver Function 10/24/17 Range/Units 03:24 Total Bilirubin 3.2 H (0.3-1.0) mg/dL AST 20 (13-39) Units/L ALT 20 (7-52) Units/L Alkaline Phosphatase 55 (34-104) Units/L Albumin 2.9 L (3.5-5.7) g/dL - ABG Interpretation ABG results: PT/INR, D-dimer PT 13.8 Seconds (9.4-12.1) H 10/23/17 11:17 - Impressions Impressions Abdomen/Pelvis CT 10/23/17 16:09 IMPRESSION: 1. Acute cholecystitis with obstructive stone at the gallbladder neck. This corresponds with findings on ultrasound performed earlier today. 2. Right basilar subsegmental atelectasis is presumably related to respiratory splinting. 3. Calcific atherosclerotic disease aorta. 4. Reactive pelvic ascites has increased in volume since prior study. D/ / Fadi Valladares / Fadi Valladares Interpreting Provider: Fadi Valladares Cholangiogram,Operative 10/24/17 09:50 IMPRESSION: Status post cholecystectomy. Normal appearance of the biliary ductal system. Filling defects in the duodenum not completely assessed on this exam. Nonemergent upper GI or upper endoscopy could be utilized for further assessment. D/ / 10/24/2017 10:22:32 Carroll Knott MD / symone Interpreting Provider: Carroll Knott MD Consult Discharge Plan - Plan Referrals: Mercedes Arreguin, CONTRACT CLERK [employer] [Primary Care Provider] - (2) Abdominal pain Qualifiers: Abdominal location: epigastric Qualified Code(s): R10.13 - Epigastric pain (3) UTI (urinary tract infection) Qualifiers: Urinary tract infection type: site unspecified Hematuria presence: with hematuria Qualified Code(s): N39.0 - Urinary tract infection, site not specified; R31.9 - Hematuria, unspecified (5) GERD (gastroesophageal reflux disease) Qualifiers: Esophagitis presence: esophagitis presence not specified Qualified Code(s): K21.9 - Gastro-esophageal reflux disease without esophagitis (6) HLD (hyperlipidemia) Qualifiers: Hyperlipidemia type: pure hypercholesterolemia Qualified Code(s): E78.00 - Pure hypercholesterolemia, unspecified; E78.0 - Pure hypercholesterolemia (7) HTN (hypertension) Qualifiers: Hypertension type: essential hypertension Qualified Code(s): I10 - Essential (primary) hypertension
[2017-10-24] MEDS: 0.9 % Sodium Chloride 1,000 ML IVC SCH (11:54)
--- NOTE | 2017-10-24 16:09 | Nephrology Consult Note ---
Date of Encounter: 10/24/17 Time of Encounter: 15:00 Assessment and Plan (1) Hyponatremia Current Visit: Yes Status: Acute Acute hyponatremia, non symptomatic in the setting of HCTZ, abdominal pain which can raise ADH and likely decerased po intake HCTZ stopped Salt tabs when tolerating po intake Low rate IVF with NS for now serial sodium checks Will check serum osmolality and uric acid levels. urine osm and sodium levels noted (2) Cholecystitis Current Visit: Yes Status: Acute s/p surgical intervention. Care per surgery team (3) UTI (urinary tract infection) Current Visit: Yes Status: Suspected Abx per primary team Qualifiers: Urinary tract infection type: site unspecified Hematuria presence: with hematuria Qualified Code(s): N39.0 - Urinary tract infection, site not specified; R31.9 - Hematuria, unspecified History of Present Illness - Reason for Consult Consult date: 10/24/17 hyponatremia Requesting physician: Meme Leiva - History of Present Illness 72 y male with PMH of HTN, HLN and GERD admitted 10/23 for abdominal pain and noted with acute cholecystitis requiring surgical intervention. Pt also being treated for UTI. renal consulted for hyponatremia of 121 on presentation dropping to low of 116 and now at 122. Pt remains on NS at 50cc/ hr. Pt seen and examined sleeping and not uh of a historian at present. Most of history obtained from records. He was on HCTZ prior to admission now discontinued. Past Med Surg Social Fam HX - Past Medical History Medical history: GERD, hyperlipidemia, hypertension Psychiatric history: no psych history - Past Surgical History Surgical History: no surgical history - Social History Smoking Status: Never smoker Smokeless Tobacco Status: No Alcohol use: occasionally Drug use: none - Family History Mother Hx Family Endocrine Disorder: Yes (DM) Father Race: Family Member Ethnicity: Non- Living Status: Age at : 75 Cause of : Infective TB Hx Family Respiratory Disorders: Yes (TB, COPD) Brother Race: Family Member Ethnicity: Non- Living Status: Age at : 51 Cause of : Aneurysm Hx Family Cardiac Disorders: Yes (Aneurysm) Sister Race: Family Member Ethnicity: Non- Living Status: Age at : 82 Cause of : Accident Hx Family Neurologic Disorders: Yes (Alzheimer's disease) Medications and Allergies Aspirin [Lo-Dose Aspirin EC] 81 mg PO DAILY 10/23/17 [History] Atorvastatin [Lipitor] 20 mg PO DAILY 10/23/17 [History] Cholecalciferol (D-3) [Vitamin D] 1,000 unit PO DAILY 10/23/17 [History] Lisinopril/Hydrochlorothiazide [Zestoretic 20-12.5 mg Tablet] 0.5 tab PO HS [History] Lisinopril/Hydrochlorothiazide [Zestoretic 20-12.5 mg Tablet] 1 tab PO QAM 10/23 [History] Ranitidine HCl [Zantac] 300 mg PO DAILY PRN 10/23/17 [History] 3 Allergy/AdvReac Type Severity Reaction Status Date / Time Penicillins [PCN] Allergy Hives Verified 10/23/17 13:56 Review of Systems ROS unobtainable: due to mental status Exam - Vital Signs Vital signs: Initial Vital Signs Temp Pulse Resp BP Pulse Ox 98.8 F 88 18 165/81 98 10/23/17 10:46 10/23/17 10:46 10/23/17 10:46 10/23/17 10:46 10/23/17 10:46 Vital Signs - Last 8 Hours Temp Pulse Resp BP Pulse Ox 10/24/17 14:45 97.8 F 71 17 98/66 94 10/24/17 13:45 97.6 F 71 17 103/72 94 10/24/17 12:45 97.5 F L 75 17 100/62 95 10/24/17 12:15 97.6 F 74 17 104/66 96 10/24/17 11:45 97.7 F 78 16 106/72 95 10/24/17 11:15 97.8 F 77 16 107/63 94 10/24/17 11:05 98.0 F 79 14 100/71 95 10/24/17 10:55 79 14 101/60 92 10/24/17 10:45 84 14 101/60 94 10/24/17 10:35 98.3 F 82 12 105/62 98 Intake and Output 10/24/17 10/24/17 10/24/17 07:59 15:59 23:59 Intake Total 100 / 100 240 / 240 Output Total 200 / 200 240 / 240 Balance -100 / -100 0 / 0 Intake: IV Fluids 100 / 100 Flagyl Premix 500 MG/100 ML 500 100 / 100 mg In 100 ml @ 100 mls/hr IVPB Q8H [facility] Rx#:[id number] Oral 0 / 0 240 / 240 Output: Estimated Blood Loss 40 / 40 Urine Amount (Catheter) 200 / 200 Catheter 200 / 200 0 / 0 Other: Meal Lunch Percent of Meal Consumed 45% # Bowel Movements 0 0 Blood Glucose* 109 - General Appearance General appearance: well-developed, well-nourished EENT: ATNC, mucous membranes dry Neck: no JVD, supple Respiratory: clear (ant bilat) Cardiology: no edema, normal S1, normal S2 Gastrointestinal: tenderness, no guarding Integumentary: warm and dry Neurologic: disoriented (sleeping) Musculoskeletal: no deformities Psychiatric: mood/affect appropriate Results - Lab Results 10/24/17 03:24 10/24/17 06:00 Most recent lab results Calcium 7.9 mg/dL (8.6-10.3) L 10/24/17 03:24 Magnesium 1.5 mg/dL (1.6-2.6) L 10/24/17 03:24 Urine Sodium 18.6 mEq/L 10/23/17 20:57 Consult Discharge Plan - Plan Referrals: Mercedes Arreguin, [employer] [Primary Care Provider] -
[2017-10-24] MEDS ORDERED: Lisinopril-HCTZ 20-12.5mg TABLET PO SCH (21:00)
[2017-10-25 01:10] LABS: Basophils % 0.1 %; Hematocrit 34.4 % (37.5-50.1); Immature Granulocytes % 0.7 % (0-4); Lymphocytes # 0.4 K/mcL (0.6-4.6); Lymphocytes % 4.2 %; Mean Corpuscular HGB Conc 34.9 g/dL (31.6-35.5); Mean Corpuscular Hemoglobin 30.1 pg (28.0-33.3); Mean Corpuscular Volume 86.2 fL (83.0-100.0); Mean Platelet Volume 9.5 fL (9.4-12.4); Monocytes # 0.6 K/mcL (0.0-1.3); Monocytes % 7.1 %; Neutrophils # 7.8 K/mcL (1.6-8.9); Platelet Count 176 K/mcL (140-400); Red Blood Count 3.99 M/mcL (4.19-5.50); Red Cell Distribution Width 13.2 % (11.5-14.5); Segmented Neutrophils % 87.9 %
[2017-10-25 01:29] LABS: Alanine Aminotransferase 48 Units/L (7-52); Albumin 2.8 g/dL (3.5-5.7); Albumin/Globulin Ratio 1.2 (1.1-2.2); Alkaline Phosphatase 52 Units/L (34-104); Aspartate Amino Transferase 55 Units/L (13-39); BUN/Creatinine Ratio 25 (6-26); Bilirubin,Total 1.7 mg/dL (0.3-1.0); Blood Urea Nitrogen 25 mg/dL (8-23); Calcium 7.9 mg/dL (8.6-10.3); Carbon Dioxide 23 mEq/L (23-29); Chloride 95 mEq/L (98-107); Globulin 2.4 g/dL (2.4-3.5); Glucose 176 mg/dL (70-105); Osmolality,Calculated 265 (280-300); Potassium 4.3 mEq/L (3.5-5.1); Sodium 123 mEq/L (136-145); Total Protein 5.2 g/dL (6.4-8.9); eGFR For Non-African Americans > 60 (> 60)
[2017-10-25 02:06] LABS: Hepatitis A Antibody IgM Nonreactive (Nonreactive); Hepatitis B Core IgM Nonreactive (Nonreactive); Hepatitis B Surface Antigen Nonreactive (Nonreactive); Hepatitis C Virus Antibody Nonreactive (Nonreactive)
[2017-10-25] MEDS: MetroNIDAZOLE 500 MG/100 ML 500 MG/100 ML BAG IVPB SCH (06:08)
[2017-10-25] MEDS: Pantoprazole 40 MG VIAL IVP SCH (06:09)
--- NOTE | 2017-10-25 07:59 | General Surgery Progress Note ---
<Coby Slaughter - Last Filed: 10/25/17 07:54> Date of Encounter: 10/25/17 Time of Encounter: 07:54 - Assessment and Plan (1) Cholecystitis Current Visit: Yes Status: Acute Date of procedure: 10/24/17 Pre-op diagnosis: Acute cholecystitis, hyperbilirubinemia Post-op diagnosis: same Procedure: Laparoscopic cholecystectomy with intraoperative cholangiogram. Anesthesia: GETA Surgeon: Ha Pereira POD #1 as above. Pt states his preprocedural discomfort has completely resolved and he has only minimal discomfort in the right upper quadrant when taking a deep breath. He states he is hungry and would also like his Jacobson catheter out. He has not utilized pain medication. Plan: -advanced diet as tolerated -supportive care and discomfort management -OK to d.c. jacobson from a surgical perspective (per primary team). -okay to DC from a surgical perspective. His follow-up appointment has been made. See DC plan. Subjective Patient reports: no new complaints, feels better, pain is less, tolerating liquids well, voiding w/o difficulty (per jacobson), flatus, bowel movement, afebrile Objective Vital Signs - Last 8 Hours Temp Pulse Resp BP Pulse Ox 10/25/17 05:36 97.6 F 69 15 100/60 95 Intake and Output 10/24/17 10/24/17 10/25/17 15:59 23:59 07:59 Intake Total 340 / 340 600 / 600 200 / 200 Output Total 240 / 240 350 / 350 1250 / 1250 Balance 100 / 100 250 / 250 -1050 / -1050 Intake: IV Fluids 100 / 100 300 / 300 100 / 100 Cipro Premix 400 MG/200 ML 400 200 / 200 mg In 200 ml @ 200 mls/hr IVPB Q12HR [facility] Rx#:[id number] Flagyl Premix 500 MG/100 ML 500 100 / 100 100 / 100 100 / 100 mg In 100 ml @ 100 mls/hr IVPB Q8H [facility] Rx#:[id number] Oral 240 / 240 300 / 300 100 / 100 Output: Estimated Blood Loss 40 / 40 Urine Amount (Catheter) 200 / 200 Catheter 0 / 0 350 / 350 1250 / 1250 Other: Meal Lunch Percent of Meal Consumed 45% # Bowel Movements 0 0 0 Weight 80.4 kg Patient Weight 10/25/17 23:59 Weight 80.4 kg - General physical appearance well nourished, no distress, no pain - Eyes normal ocular movement - ENT atraumatic, normocephalic - Neck Neck exam: trachea midline, no venous distension - Respiratory normal expansion, normal respiratory effort, clear to auscultation - Cardiovascular Cardiovascular exam: Present: RRR - Abdomen Abdomen: Present: bowel sounds present, soft, tender (Expected postoperative) Hernia: none - Integumentary no growths, no abnormal pigmentation - Neurologic CN 2-12 grossly intact, normal coordination, normal sensation - Musculoskeletal normal gait, normal posture - Psychiatric oriented to time, oriented to person, oriented to place, speech is normal, memory intact - Labs 10/25/17 00:59 10/25/17 00:59 Diabetes panel 10/25/17 Range/Units 00:59 Sodium 123 L (136-145) mEq/L Potassium 4.3 (3.5-5.1) mEq/L Chloride 95 L (98-107) mEq/L Carbon Dioxide 23 (23-29) mEq/L BUN 25 H (8-23) mg/dL Creatinine 0.99 (0.70-1.30) mg/dL Glucose 176 H (70-105) mg/dL Calcium 7.9 L (8.6-10.3) mg/dL AST 55 H (13-39) Units/L ALT 48 (7-52) Units/L Alkaline Phosphatase 52 (34-104) Units/L Albumin 2.8 L (3.5-5.7) g/dL Thyroid panel 10/25/17 Range/Units 00:59 TSH 0.466 (0.340-5.600) mcIU/mL Calcium panel 10/25/17 Range/Units 00:59 Calcium 7.9 L (8.6-10.3) mg/dL Albumin 2.8 L (3.5-5.7) g/dL Pituitary panel 10/25/17 10/25/17 Range/Units 00:59 00:59 Sodium 123 L (136-145) mEq/L Potassium 4.3 (3.5-5.1) mEq/L Chloride 95 L (98-107) mEq/L Carbon Dioxide 23 (23-29) mEq/L BUN 25 H (8-23) mg/dL Creatinine 0.99 (0.70-1.30) mg/dL Glucose 176 H (70-105) mg/dL Calcium 7.9 L (8.6-10.3) mg/dL TSH 0.466 (0.340-5.600) mcIU/mL Adrenal panel 10/25/17 Range/Units 00:59 Sodium 123 L (136-145) mEq/L Potassium 4.3 (3.5-5.1) mEq/L Chloride 95 L (98-107) mEq/L Carbon Dioxide 23 (23-29) mEq/L BUN 25 H (8-23) mg/dL Creatinine 0.99 (0.70-1.30) mg/dL Glucose 176 H (70-105) mg/dL Calcium 7.9 L (8.6-10.3) mg/dL Total Bilirubin 1.7 H (0.3-1.0) mg/dL AST 55 H (13-39) Units/L ALT 48 (7-52) Units/L Alkaline Phosphatase 52 (34-104) Units/L Albumin 2.8 L (3.5-5.7) g/dL - VTE Documentation of Mechanical Device: Intermittent pneumatic compression device Consult Discharge Plan - Plan Instructions: Laparoscopic Cholecystectomy (DC) Additional Instructions: General Surgical Discharge Instructions 1. No pushing, pulling, or lifting greater than 15 lbs for 2-4 weeks (depending upon procedure). 2. You may shower beginning today, but no tub baths, soaking, or swimming for 2 weeks. 3. You may resume driving when you are off narcotics and are safe to react in a car. 4. Take ibuprofen every 8 hours for discomfort. If this does not relieve discomfort, you may take Tylenol (since you declined narcotic pain meds). 5. Take stool softeners (Colace) or a water based laxative (Miralax) while taking narcotics. You may hold for loose stools. 6. Report any fevers greater than 100.5F, increase abdominal discomfort, drainage that looks like pus, increased redness or pain at the surgical site, or any vomiting. 7. Report any pain in the calves, shortness of breath, or rapid heartbeat. 8. Follow-up in the office as directed. 9. If you were prescribed antibiotics, do not stop them without talking to your provider. Referrals: Mercedes Arreguin CNP [Primary Care Provider] - Coby Slaughter CNP [Advanced Practice Nurse] - 11/09/17 2:45 pm Prescriptions: Ibuprofen 800 mg PO Q8H PRN #30 tablet PRN Reason: Pain <Ha Pereira - Last Filed: 10/25/17 10:50> Date of Encounter: 10/25/17 Objective Vital Signs - Last 8 Hours Temp Pulse Resp BP Pulse Ox 10/25/17 10:39 98.2 F 75 16 111/45 92 10/25/17 05:36 97.6 F 69 15 100/60 95 Intake and Output 10/24/17 10/25/17 10/25/17 23:59 07:59 15:59 Intake Total 600 / 600 200 / 200 360 / 360 Output Total 350 / 350 1250 / 1250 550 / 550 Balance 250 / 250 -1050 / -1050 -190 / -190 Intake: IV Fluids 300 / 300 100 / 100 Cipro Premix 400 MG/200 ML 400 200 / 200 mg In 200 ml @ 200 mls/hr IVPB Q12HR [facility] Rx#:[id number] Flagyl Premix 500 MG/100 ML 500 100 / 100 100 / 100 mg In 100 ml @ 100 mls/hr IVPB Q8H [facility] Rx#:[id number] Oral 300 / 300 100 / 100 360 / 360 Output: Catheter 350 / 350 1250 / 1250 550 / 550 Other: Meal Breakfast Percent of Meal Consumed 100% # Bowel Movements 0 0 0 Weight 80.4 kg Patient Weight 10/25/17 23:59 Weight 80.4 kg - Labs 10/25/17 00:59 10/25/17 00:59 Diabetes panel 10/24/17 10/25/17 Range/Units 03:24 00:59 Sodium 123 L (136-145) mEq/L Potassium 4.3 (3.5-5.1) mEq/L Chloride 95 L (98-107) mEq/L Carbon Dioxide 23 (23-29) mEq/L BUN 25 H (8-23) mg/dL Creatinine 0.99 (0.70-1.30) mg/dL Glucose 176 H (70-105) mg/dL Hemoglobin A1c 5.5 ( - 5.6) % Calcium 7.9 L (8.6-10.3) mg/dL AST 55 H (13-39) Units/L ALT 48 (7-52) Units/L Alkaline Phosphatase 52 (34-104) Units/L Albumin 2.8 L (3.5-5.7) g/dL Thyroid panel 10/25/17 Range/Units 00:59 TSH 0.466 (0.340-5.600) mcIU/mL Calcium panel 10/25/17 Range/Units 00:59 Calcium 7.9 L (8.6-10.3) mg/dL Albumin 2.8 L (3.5-5.7) g/dL Pituitary panel 10/25/17 10/25/17 Range/Units 00:59 00:59 Sodium 123 L (136-145) mEq/L Potassium 4.3 (3.5-5.1) mEq/L Chloride 95 L (98-107) mEq/L Carbon Dioxide 23 (23-29) mEq/L BUN 25 H (8-23) mg/dL Creatinine 0.99 (0.70-1.30) mg/dL Glucose 176 H (70-105) mg/dL Calcium 7.9 L (8.6-10.3) mg/dL TSH 0.466 (0.340-5.600) mcIU/mL Adrenal panel 10/25/17 Range/Units 00:59 Sodium 123 L (136-145) mEq/L Potassium 4.3 (3.5-5.1) mEq/L Chloride 95 L (98-107) mEq/L Carbon Dioxide 23 (23-29) mEq/L BUN 25 H (8-23) mg/dL Creatinine 0.99 (0.70-1.30) mg/dL Glucose 176 H (70-105) mg/dL Calcium 7.9 L (8.6-10.3) mg/dL Total Bilirubin 1.7 H (0.3-1.0) mg/dL AST 55 H (13-39) Units/L ALT 48 (7-52) Units/L Alkaline Phosphatase 52 (34-104) Units/L Albumin 2.8 L (3.5-5.7) g/dL
[2017-10-25] MEDS ORDERED: Lisinopril-HCTZ 20-12.5mg TABLET PO SCH (09:00)
[2017-10-25] MEDS: Aspirin Enteric Coated 81 MG Tablet PO SCH (09:26)
[2017-10-25] MEDS: Cholecalciferol (D-3) 1,000 UNIT TABLET PO SCH (09:26)
[2017-10-25 10:36] LABS: Estimated Average Glucose 111 mg/dl; Hemoglobin A1C 5.5 %
--- NOTE | 2017-10-25 14:19 | Nephrology Progress Note ---
Date of Encounter: 10/25/17 Time of Encounter: 14:16 - Assessment and Plan (1) Cholecystitis Current Visit: Yes Status: Acute s/p surgical intervention. Care per surgery team (2) UTI (urinary tract infection) Current Visit: Yes Status: Suspected Abx per primary team Qualifiers: Urinary tract infection type: site unspecified Hematuria presence: with hematuria Qualified Code(s): N39.0 - Urinary tract infection, site not specified; R31.9 - Hematuria, unspecified (3) Hyponatremia Current Visit: Yes Status: Acute Acute hyponatremia, non symptomatic in the setting of HCTZ, abdominal pain which can raise ADH and likely decerased po intake HCTZ stopped Salt tabs when tolerating po intake Low rate IVF with NS for now serial sodium checks Patient wants to go home. He is asymptomatic so this is okay. He should have his serum sodium checked in 48-72 hours to make sure his sodium does not decrease. Subjective Principal diagnosis: Hyponatremia. Interval history: Patient was seen. He is sitting up on the edge of the bed. He states he is leaving today. His family is at his bedside. Objective - Vital Signs Vital signs: Vital Signs Temp Pulse Resp BP Pulse Ox 10/25/17 10:39 98.2 F 75 16 111/45 92 10/25/17 05:36 97.6 F 69 15 100/60 95 10/24/17 18:47 98 F 67 15 102/52 95 10/24/17 14:45 97.8 F 71 17 98/66 94 Intake and Output 10/24/17 10/25/17 10/25/17 23:59 07:59 15:59 Intake Total 600 / 600 200 / 200 600 / 600 Output Total 350 / 350 1250 / 1250 725 / 725 Balance 250 / 250 -1050 / -1050 -125 / -125 Intake: IV Fluids 300 / 300 100 / 100 Cipro Premix 400 MG/200 ML 400 200 / 200 mg In 200 ml @ 200 mls/hr IVPB Q12HR [facility] Rx#:[id number] Flagyl Premix 500 MG/100 ML 500 100 / 100 100 / 100 mg In 100 ml @ 100 mls/hr IVPB Q8H [facility] Rx#:[id number] Oral 300 / 300 100 / 100 600 / 600 Output: Urine 175 / 175 Catheter 350 / 350 1250 / 1250 550 / 550 Other: Meal Lunch Percent of Meal Consumed 100% # Bowel Movements 0 0 0 Weight 80.4 kg Patient Weight 10/25/17 23:59 Weight 80.4 kg - General Appearance General appearance: Present: well-developed, well-nourished EENT: Present: ATNC Neck: Present: supple Cardiology: Present: regular rate Integumentary: Present: warm and dry Neurologic: Present: alert and oriented x3 Musculoskeletal: Present: no cyanosis Psychiatric: Present: mood/affect appropriate - Lab 10/25/17 00:59 10/25/17 00:59 Most recent lab results Calcium 7.9 mg/dL (8.6-10.3) L 10/25/17 00:59 Magnesium 1.5 mg/dL (1.6-2.6) L 10/24/17 03:24 Urine Sodium 18.6 mEq/L 10/23/17 20:57 - VTE Documentation of Mechanical Device: Intermittent pneumatic compression device Consult Discharge Plan - Plan Instructions: Urinary Retention in Men (GEN), Laparoscopic Cholecystectomy (DC) Additional Instructions: General Surgical Discharge Instructions 1. No pushing, pulling, or lifting greater than 15 lbs for 2-4 weeks (depending upon procedure). 2. You may shower beginning today, but no tub baths, soaking, or swimming for 2 weeks. 3. You may resume driving when you are off narcotics and are safe to react in a car. 4. Take ibuprofen every 8 hours for discomfort. If this does not relieve discomfort, you may take Tylenol (since you declined narcotic pain meds). 5. Take stool softeners (Colace) or a water based laxative (Miralax) while taking narcotics. You may hold for loose stools. 6. Report any fevers greater than 100.5F, increase abdominal discomfort, drainage that looks like pus, increased redness or pain at the surgical site, or any vomiting. 7. Report any pain in the calves, shortness of breath, or rapid heartbeat. 8. Follow-up in the office as directed. 9. If you were prescribed antibiotics, do not stop them without talking to your provider. Referrals: Coby Slaughter CNP [Advanced Practice Nurse] - 11/09/17 2:45 pm Arreguin,Mercedes J, [employer] [Primary Care Provider] - Prescriptions: Ibuprofen 800 mg PO Q8H PRN #30 tablet PRN Reason: Pain
[2017-10-25 14:51] LABS: BUN/Creatinine Ratio 25 (6-26); Blood Urea Nitrogen 22 mg/dL (8-23); Calcium 8.3 mg/dL (8.6-10.3); Carbon Dioxide 25 mEq/L (23-29); Chloride 96 mEq/L (98-107); Glucose 187 mg/dL (70-105); Osmolality,Calculated 268 (280-300); Sodium 125 mEq/L (136-145); eGFR For Non-African Americans > 60 (> 60)
--- NOTE | 2017-10-25 16:48 | Internal Med Progress Note ---
Hospitalist Progress Note - Encounter Date of Encounter: 10/25/17 Time of Encounter: 11:10 - Subjective Interval History: Pt was seen and assessed at bedside at 1110. He is alert and awake, family x 2 at bedside. Pt states that he was told by surgery that he could go home. He denies pain and states that he is eating and drinking well and has had a bowel movement. - Exam Vitals: Temp Pulse Resp BP Pulse Ox 97.7 F 67 16 117/66 94 10/25/17 14:49 10/25/17 14:49 10/25/17 14:49 10/25/17 14:49 10/25/17 14:49 Exam: General: Pt resting quietly on bed, no distress. Skin: pwd, no rashes, lesions, redness Neurological: Pt is alert and awake, oriented x 3, Speech is clear, PERRLA, EOMI , no nystagmus, no pronator drift. strength equal x 4 extremities HEENT: mucous mumbranes moist, no conjuctival pallor Neck: supple, no tracheal deviation, no lymphadenopathy, tenderness, no thyromegaly Heart: S1S2 heard without gallops, clicks, murmurs, no bradycardia or tachycardia, pt has no peripheral edema, pedal and radial pulses palpable bilaterally. Lungs: clear throughout without wheezing, rales, or ronchi, respirations are unlabored Abdomen: soft and non tender with bowel sound present, no hepatomegaly. Psych: Normal affect with good eye contact - Assessment and Plan (1) Abdominal pain Current Visit: Yes Status: Resolved Assessment and Plan: Resolved. POD 1. Pt is eating and drinking denies pain, n/v/d, constipation. (2) Cholecystitis Current Visit: Yes Status: Resolved Assessment and Plan: POD 1 s/p lap sara. (3) UTI (urinary tract infection) Current Visit: Yes Status: Suspected Assessment and Plan: Urine culture grew Klebsiella pneu.ssp pneumoniae Continue Cipro (4) Hyponatremia Current Visit: Yes Status: Acute Assessment and Plan: Hypoosmolar Acute hyponatermia w/sodium of 121 on admission of unknown etiology. Likely due to diuretics Na 125, improving Continue IVF and nephrology is following and has added NaCl tablets. Monitor labs (5) GERD (gastroesophageal reflux disease) Current Visit: Yes Status: Chronic Assessment and Plan: Hx of chronic GERD. IVP Protonix 40 mg BID. (6) HLD (hyperlipidemia) Current Visit: Yes Status: Chronic Assessment and Plan: Continue current dose of Lipitor. (7) HTN (hypertension) Current Visit: Yes Status: Chronic Assessment and Plan: Hx of chronic HTN. Monitor patient vital signs. Continue to hold diuretics due to hyponatremia Continue IVF (8) DVT prophylaxis Current Visit: Yes Status: Acute Assessment and Plan: Heparin SQ TID. (9) Enlarged prostate Current Visit: Yes Status: Acute Assessment and Plan: Enlarged prostate on CT of the abdomen/prostate on 10/21. Unknown if enlarged prostate playing a role in pts. urinary urgency/scant output. 10/25- Urology consulted and they did not feel that prostate is enlarged. Bee removed today for void trial, primary RN states that pt has been able to urinate without difficulty. Continue Cipro DVT Prophylaxis: as above - Time Spent with Patient Total time spent is greater than 50% in coordination of care (as documented) at patient's floor/unit and/or counseling patient: less than 15 minutes Plan of Care Discussed with: patient Internal Medicine: Result - Labs CBC & Chem 7: 10/25/17 00:59 10/25/17 14:18 Labs: Short CBC 10/25/17 Range/Units 00:59 WBC 8.8 (4.3-11.1) K/mcL Hgb 12.0 L (12.9-16.9) g/dL Hct 34.4 L (37.5-50.1) % Plt Count 176 (140-400) K/mcL Neutrophils # 7.8 (1.6-8.9) K/mcL BMP 10/25/17 10/25/17 00:59 14:18 Sodium 123 L 125 L Potassium 4.3 4.0 Chloride 95 L 96 L Carbon Dioxide 23 25 BUN 25 H 22 Creatinine 0.99 0.87 Glucose 176 H 187 H Calcium 7.9 L 8.3 L Liver Function 10/25/17 Range/Units 00:59 Total Bilirubin 1.7 H (0.3-1.0) mg/dL AST 55 H (13-39) Units/L ALT 48 (7-52) Units/L Alkaline Phosphatase 52 (34-104) Units/L Albumin 2.8 L (3.5-5.7) g/dL - ABG Interpretation ABG results: PT/INR, D-dimer PT 13.8 Seconds (9.4-12.1) H 10/23/17 11:17 - VTE Documentation of Mechanical Device: Intermittent pneumatic compression device Consult Discharge Plan - Plan Instructions: Urinary Retention in Men (GEN), Laparoscopic Cholecystectomy (DC) Additional Instructions: General Surgical Discharge Instructions 1. No pushing, pulling, or lifting greater than 15 lbs for 2-4 weeks (depending upon procedure). 2. You may shower beginning today, but no tub baths, soaking, or swimming for 2 weeks. 3. You may resume driving when you are off narcotics and are safe to react in a car. 4. Take ibuprofen every 8 hours for discomfort. If this does not relieve discomfort, you may take Tylenol (since you declined narcotic pain meds). 5. Take stool softeners (Colace) or a water based laxative (Miralax) while taking narcotics. You may hold for loose stools. 6. Report any fevers greater than 100.5F, increase abdominal discomfort, drainage that looks like pus, increased redness or pain at the surgical site, or any vomiting. 7. Report any pain in the calves, shortness of breath, or rapid heartbeat. 8. Follow-up in the office as directed. 9. If you were prescribed antibiotics, do not stop them without talking to your provider. Referrals: Coby Slaughter CNP [Advanced Practice Nurse] - 11/09/17 2:45 pm Mercedes Arreguin CNP [Primary Care Provider] - Prescriptions: Ibuprofen 800 mg PO Q8H PRN #30 tablet PRN Reason: Pain (1) Abdominal pain Qualifiers: Abdominal location: epigastric Qualified Code(s): R10.13 - Epigastric pain (3) UTI (urinary tract infection) Qualifiers: Urinary tract infection type: site unspecified Hematuria presence: with hematuria Qualified Code(s): N39.0 - Urinary tract infection, site not specified; R31.9 - Hematuria, unspecified (5) GERD (gastroesophageal reflux disease) Qualifiers: Esophagitis presence: esophagitis presence not specified Qualified Code(s): K21.9 - Gastro-esophageal reflux disease without esophagitis (6) HLD (hyperlipidemia) Qualifiers: Hyperlipidemia type: pure hypercholesterolemia Qualified Code(s): E78.00 - Pure hypercholesterolemia, unspecified; E78.0 - Pure hypercholesterolemia (7) HTN (hypertension) Qualifiers: Hypertension type: essential hypertension Qualified Code(s): I10 - Essential (primary) hypertension
[2017-10-25] MEDS: 0.9 % Sodium Chloride 1,000 ML IVC SCH (17:47)
[2017-10-25] MEDS: *HR* Heparin 5,000 UNIT/ML VIAL SQ SCH (20:48)
[2017-10-26 05:29] LABS: Basophils % 0.1 %; Eosinophils % 0.3 %; Hematocrit 32.5 % (37.5-50.1); Hemoglobin 11.1 g/dL (12.9-16.9); Immature Granulocytes % 0.4 % (0-4); Lymphocytes # 0.8 K/mcL (0.6-4.6); Lymphocytes % 10.7 %; Mean Corpuscular HGB Conc 34.2 g/dL (31.6-35.5); Mean Corpuscular Hemoglobin 29.2 pg (28.0-33.3); Mean Corpuscular Volume 85.5 fL (83.0-100.0); Mean Platelet Volume 9.6 fL (9.4-12.4); Monocytes # 0.9 K/mcL (0.0-1.3); Monocytes % 11.2 %; Neutrophils # 6.1 K/mcL (1.6-8.9); Platelet Count 228 K/mcL (140-400); Red Cell Distribution Width 13.4 % (11.5-14.5); Segmented Neutrophils % 77.3 %
[2017-10-26 05:44] LABS: Alanine Aminotransferase 72 Units/L (7-52); Albumin 2.6 g/dL (3.5-5.7); Albumin/Globulin Ratio 1.1 (1.1-2.2); Alkaline Phosphatase 54 Units/L (34-104); Aspartate Amino Transferase 67 Units/L (13-39); BUN/Creatinine Ratio 23 (6-26); Bilirubin,Total 0.7 mg/dL (0.3-1.0); Blood Urea Nitrogen 17 mg/dL (8-23); Calcium 7.8 mg/dL (8.6-10.3); Carbon Dioxide 24 mEq/L (23-29); Chloride 101 mEq/L (98-107); Globulin 2.4 g/dL (2.4-3.5); Glucose 121 mg/dL (70-105); Osmolality,Calculated 275 (280-300); Potassium 3.8 mEq/L (3.5-5.1); Sodium 131 mEq/L (136-145); eGFR For Non-African Americans > 60 (> 60)
[2017-10-26] MEDS: *HR* Heparin 5,000 UNIT/ML VIAL SQ SCH (05:52)
[2017-10-26] MEDS: Aspirin Enteric Coated 81 MG Tablet PO SCH (09:00)
[2017-10-26] MEDS: Cholecalciferol (D-3) 1,000 UNIT TABLET PO SCH (09:01)
[2017-10-26 10:37] VITALS: BP 149/73
--- NOTE | 2017-10-26 17:23 | Discharge Summary ---
- NOTES TO OUTPATIENT PROVIDER Notes to Outpatient Provider: Liver Function test and BMP to eval for sodium level. Orders not resulted at time of discharge: Pending orders 10/24/17 10:11 Surgical Pathology [PTH] Routine 10/27/17 04:00 Complete Blood Count [HEME] AM 0400 Comprehensive Metabolic Panel AM 0400 Date of Encounter: 10/26/17 Time of Encounter: 17:20 - Discharge Diagnosis (1) Cholecystitis Priority: Primary Status: Acute Assessment and Plan: S/P laparoscopic cholecystectomy (2) Abdominal pain Priority: Secondary Status: Resolved Qualifiers: Abdominal location: epigastric Qualified Code(s): R10.13 - Epigastric pain (3) UTI (urinary tract infection) Priority: Secondary Status: Acute Assessment and Plan: Urine culture positive for Klepsiella Pneumonia Qualifiers: Urinary tract infection type: site unspecified Hematuria presence: with hematuria Qualified Code(s): N39.0 - Urinary tract infection, site not specified; R31.9 - Hematuria, unspecified (4) Hyponatremia Priority: Secondary Status: Acute (5) GERD (gastroesophageal reflux disease) Priority: Secondary Status: Chronic Qualifiers: Esophagitis presence: esophagitis presence not specified Qualified Code(s) : K21.9 - Gastro-esophageal reflux disease without esophagitis (6) HLD (hyperlipidemia) Priority: Secondary Status: Chronic Qualifiers: Hyperlipidemia type: pure hypercholesterolemia Qualified Code(s): E78.00 - Pure hypercholesterolemia, unspecified; E78.0 - Pure hypercholesterolemia (7) HTN (hypertension) Priority: Secondary Status: Chronic Qualifiers: Hypertension type: essential hypertension Qualified Code(s): I10 - Essential (primary) hypertension (8) DVT prophylaxis Priority: Secondary Status: Acute (9) Enlarged prostate Priority: Secondary Status: Chronic Hospital course: Mr. Trimble is a 72 year old male w/PMH of GERD, HTN, and HLD presents from the ED w/CC of abdominal pain. Found to have cholecystitis and underwent laparoschopic cholecystectomy. Patient also found to have a UTI (culture grew Klepsiella Pneumonia haddad-sensitive), started on ciprofloxacin 400mg/IV Q12HR and discharged on Ciprofloxacin 500mg/PO Q12HR BID to complete 10 days as per Urologist recommendations. Patient recommended to follow up with his PCP and with surgery within 7 days of hospital discharge. Also educated that if he has urinary symptoms to make an appointment with an urologist. Patient evaluated at beside, clinically stable to be discharger home. Discharge discussed with: patient, family - Time Spent with Patient Total time spent providing and/or coordinating discharge services: Greater than 30 minutes - Discharge Medications Prescriptions: Ciprofloxacin [Cipro] 500 mg PO BID 7 Days #14 tablet Ibuprofen 800 mg PO Q8H PRN #30 tablet PRN Reason: Pain Home Medications: Aspirin [Lo-Dose Aspirin EC] 81 mg PO DAILY 10/23/17 [History] Atorvastatin [Lipitor] 20 mg PO DAILY 10/23/17 [History] Cholecalciferol (D-3) [Vitamin D] 1,000 unit PO DAILY 10/23/17 [History] Lisinopril/Hydrochlorothiazide [Zestoretic 20-12.5 mg Tablet] 0.5 tab PO HS [History] Lisinopril/Hydrochlorothiazide [Zestoretic 20-12.5 mg Tablet] 1 tab PO QAM 10/23 [History] Ibuprofen 800 mg PO Q8H PRN #30 tablet 10/25/17 [Rx] Ciprofloxacin [Cipro] 500 mg PO BID 7 Days #14 tablet 10/26/17 [Rx] Allergies/Adverse Reactions: 3 Allergy/AdvReac Type Severity Reaction Status Date / Time Penicillins [PCN] Allergy Hives Verified 10/23/17 13:56 Date of admission: 10/23/17 13:50 Primary care physician: Mercedes Arreguin CNP Consults: 10/23/17 14:43 Consult to Support Services Rep [CONS] Routine Reason for SW Consult: Please assess patient for possible home needs for post -discharge planning. 10/23/17 15:01 Consult to Urology [CONS] Routine Consulting Provider: [facility] Reason for Consult: Patient has had urinary dribbling and scant output for the past two days. Urgency and burning w/urination. U/A indicative for culture. Sodium 121 today. Pt. was seen on 10/21 w/abdominal pain and discharged from ED. No urinary sx at that time. WBC 16.[address] of abd/pelvis on 10/21 suggests calculus cholecystitis and enlargement of the prostate. Call Completed: Yes - Constitutional Vitals: Temp Pulse Resp BP Pulse Ox 97.8 F 66 16 149/73 96 10/26/17 10:34 10/26/17 10:34 10/26/17 10:34 10/26/17 10:34 10/26/17 10:34 General appearance: Present: cooperative, mild distress (Abdominal pain), A&O X 3, pleasant, underweight, answers questions appropriately Exam: General: Alert and oriented x3 Skin:Normal color, no rash, no lesions. HEENT:EOM, pupils equal, round and reactive. Cardiovascular:Normal S1 & S2, no rubs, murmurs or gallops. No JVD. Pulse regular. Lungs:Normal breath sounds, no wheezes or crackles. Abdomen:Soft, non-tender, no rigidity. Multiple small stitches s/p laparoscopic cholecystectomy Extremities:No deformity, no edema or tenderness, no joint swelling or clubbing. Neurological:Normal cognition and motor skills. Pulses:Carotid and radial pulses normal +2. Rest of the physical exam is non contributory - Patient Status Disposition: Home, Self-Care Condition: Good Functional capacity at discharge: independent ambulation - Discharge Instructions Instructions: Urinary Retention in Men (GEN), Laparoscopic Cholecystectomy (DC) Follow Up With: Coby Slaughter SHOWER ATTENDANT [Advanced Practice Nurse] - 11/09/17 2:45 pm Mercedes Arreguin CNP [Primary Care Provider] - Additional Instructions: General Surgical Discharge Instructions 1. No pushing, pulling, or lifting greater than 15 lbs for 2-4 weeks (depending upon procedure). 2. You may shower beginning today, but no tub baths, soaking, or swimming for 2 weeks. 3. You may resume driving when you are off narcotics and are safe to react in a car. 4. Take ibuprofen every 8 hours for discomfort. If this does not relieve discomfort, you may take Tylenol (since you declined narcotic pain meds). 5. Take stool softeners (Colace) or a water based laxative (Miralax) while taking narcotics. You may hold for loose stools. 6. Report any fevers greater than 100.5F, increase abdominal discomfort, drainage that looks like pus, increased redness or pain at the surgical site, or any vomiting. 7. Report any pain in the calves, shortness of breath, or rapid heartbeat. 8. Follow-up in the office as directed. 9. If you were prescribed antibiotics, do not stop them without talking to your provider. - Diet and Activity Activity: increase activity as tolerated Diet: advance to your usual diet - VTE Documentation of Mechanical Device: Intermittent pneumatic compression device
== END 2017-10-26 18:12 | disposition home or self-care (01) ==
LOC: EMEROOARM 10:43 → 3ANU 10:43 → SUATTDRO 13:50 → 3ANU 14:38
PROVIDERS: ADMIT Internal Medicine; ATTEND Internal Medicine